=== PATIENT | female | born 1945 | race Caucasian/White ===

== ENCOUNTER 2020-05-20 15:17 | Observation (INO) | payer MEDICARE, OTHER ==
--- NOTE | 2020-05-20 15:16 | EDM.PDOC ---
ED HPI GENERAL MEDICAL PROBLEM - General Chief Complaint: Possible Sepsis Stated Complaint: Adrenal crisis Time Seen by Provider: 05/20/20 15:16 Source of Information: Reports: Patient, Old Records, Provider (Dr. Garcia), RN, RN Notes Reviewed History Limitations: Reports: No Limitations - History of Present Illness INITIAL COMMENTS - FREE TEXT/NARRATIVE: Pt sent from clinic to ER by POV by Dr. Garcia for evaluation and treatment of adrenal crisis and fever. Pt states she was admitted to [facility] this past weekend with adrenal crisis and fever, but no source of her fever was found, and she was discharged home Tuesday morning. Pt admits to mild cough. Denies chest pain, shortness of breath, N/V, abdominal pain, or rash. She does feel fatigued and similar to past adrenal crisis episodes. Onset: Today Duration: Constant, Getting Worse Location: Reports: Generalized Quality: Reports: Ache Severity: Moderate Improves with: Reports: None Worsens with: Reports: None Associated Symptoms: Reports: No Other Symptoms Headache Pain Score (Numeric/FACES): 4 - Related Data Allergies Allergy/AdvReac Type Severity Reaction Status Date / Time Penicillins Allergy Rash Verified 05/20/20 15:40 Home Meds: Home Meds Fludrocortisone [Florinef] 1 mg PO DAILY 05/20/20 [History] Hydrocortisone 5 mg PO ASDIRECTED PRN 05/20/20 [History] Hydrocortisone [Cortef] 2.5 mg PO DAILY 05/20/20 [History] Thyroid,Pork [[place] Thyroid] 60 mg PO DAILY 05/20/20 [History] Past Medical History Endocrine/Metabolic History: Reports: [place]'s Disease, Hypothyroidism Social & Family History - Family History Family Medical History: Noncontributory - Living Situation & Occupation Living situation: Reports: with Family Occupation: Retired ED ROS GENERAL - Review of Systems Review Of Systems: Comprehensive ROS is negative, except as noted in HPI. ED EXAM, GENERAL - Physical Exam Exam: See Below Exam Limited By: No Limitations General Appearance: Alert, WD/WN, No Apparent Distress Eye Exam: Bilateral Eye: EOMI, Normal Inspection, PERRL Nose: Normal Inspection, Normal Mucosa, No Blood Throat/Mouth: Normal Lips, Normal Teeth, Normal Gums, Normal Oropharynx, Normal Voice, No Airway Compromise Head: Atraumatic, Normocephalic Neck: Normal Inspection, Supple, Non-Tender, Full Range of Motion Respiratory/Chest: No Respiratory Distress, Lungs Clear, Normal Breath Sounds, No Accessory Muscle Use, Chest Non-Tender, Other (Dry cough). No: Crackles, Rales, Rhonchi, Wheezing, Stridor Cardiovascular: Regular Rate, Rhythm, No Edema GI/Abdominal: Normal Bowel Sounds, Soft, Non-Tender, No Organomegaly, No Distention, No Abnormal Bruit, No Mass Back Exam: Normal Inspection Extremities: Normal Inspection, Normal Range of Motion, Non-Tender, Normal Capillary Refill, No Pedal Edema Neurological: Alert, Oriented, CN II-XII Intact, Normal Cognition, No Motor/Sensory Deficits Psychiatric: Normal Mood Skin Exam: Warm, Dry, Intact, Normal Color, No Rash Course - Vital Signs Last Recorded V/S: Last Vital Signs Temp 99.9 F 05/20/20 17:06 Pulse 80 05/20/20 17:06 Resp 18 05/20/20 17:06 BP 143/66 H 05/20/20 17:06 Pulse Ox 97 05/20/20 17:06 - Orders/Labs/Meds Orders: Active Orders 24 hr Category Date Time Status Admission Diagnosis [ADT] Stat ADT 05/20/20 17:54 Ordered Admission Status [Patient Status] [ADT] Routine ADT 05/20/20 17:54 Active Blood Glucose Check, Bedside [] ONETIME Care 05/20/20 15:18 Active EKG 12 Lead [EKG Documentation Completion] [RC] ROUTINE Care 05/20/20 16:38 Active Peripheral IV Care [RC] . DIRECTED Care 05/20/20 15:18 Active CULTURE BLOOD [] Stat Lab 05/20/20 15:29 Received CULTURE BLOOD [] Stat Lab 05/20/20 15:29 Results Sodium Chloride 0.9% [Normal Saline] 1,000 ml Med 05/20/20 15:20 Active IV .BOLUS Sodium Chloride 0.9% [Saline Flush] Med 05/20/20 15:17 Active 10 ml FLUSH ASDIRECTED PRN Blood Culture x2 Reflex Set [OM.PC] Stat Oth 05/20/20 15:18 Ordered Peripheral IV Insertion Adult [OM.PC] Stat Oth 05/20/20 15:17 Ordered Medication Orders Sodium Chloride (Normal Saline) 1,000 mls @ 250 mls/hr IV .BOLUS ONE Stop: 05/20/20 19:19 Last Admin: 05/20/20 16:01 Dose: 250 mls/hr Documented by: ATIYA Sodium Chloride (Saline Flush) 10 ml FLUSH ASDIRECTED PRN PRN Reason: Keep Vein Open Last Admin: 05/20/20 16:03 Dose: 10 ml Documented by: ATIYA Labs: Laboratory Tests 05/20/20 05/20/20 05/20/20 Range/Units 15:29 15:29 15:29 WBC 5.7 (5.0-10.0) 10^3/uL RBC 4.97 (4.2-5.4) 10^6/uL Hgb 14.0 (12.0-16.0) g/dL Hct 43.1 (37.0-47.0) % MCV 86.7 (80-100) fL MCH 28.2 (27.0-34.0) pg MCHC 32.5 L (33.0-35.0) g/dL Plt Count 192 (150-450) 10^3/uL Neut % (Auto) 62.6 (42.2-75.2) % Lymph % (Auto) 24.9 (20.5-50.1) % [place] % (Auto) 12.1 H (2-8) % Eos % (Auto) 0.0 L (1.0-3.0) % Baso % (Auto) 0.4 (0.0-1.0) % Sodium 141 (136-145) mmol/L Potassium 3.5 (3.5-5.1) mmol/L Chloride 101 (98-107) mmol/L Carbon Dioxide 31 (21-32) mmol/L Anion Gap 12.5 (7-13) mEq/L BUN 13 (7-18) mg/dL Creatinine 0.97 (0.55-1.02) mg/dL Est Cr Clr Drug Dosing 46.91 mL/min Estimated GFR (MDRD) 56 BUN/Creatinine Ratio 13.4 (No establ ref range) Glucose 93 (74-99) mg/dL POC Glucose (83-110) mg/dl Lactic Acid 0.9 (0.4-2.0) mmol/L Calcium 9.1 (8.5-10.1) mg/dL Total Bilirubin 0.3 (0.2-1.0) mg/dL AST 29 (15-37) U/L ALT 32 (14-59) U/L Alkaline Phosphatase 99 (46-116) U/L Total Protein 6.5 (6.4-8.2) g/dL Albumin 3.3 L (3.4-5.0) g/dL Globulin 3.2 Albumin/Globulin Ratio 1.03 Urine Color (YELLOW) Urine Appearance (CLEAR) Urine pH (5.0-9.0) Ur Specific [place] (1.005-1.030) Urine Protein (NEGATIVE) Urine Glucose (UA) (NEGATIVE) Urine Ketones (NEGATIVE) Urine Occult Blood (NEGATIVE) Urine Nitrite (NEGATIVE) Urine Bilirubin (NEGATIVE) Urine Urobilinogen (0.2-1.0) mg/dL Ur Leukocyte Esterase (NEGATIVE) Urine RBC /HPF Urine WBC (0-5/HPF) /HPF Ur Epithelial Cells (NOT SEEN) /HPF Urine Bacteria (0-FEW/HPF) /HPF SARS CoV-2 RNA Rapid DAMON (NEGATIVE) 05/20/20 05/20/20 05/20/20 Range/Units 15:54 16:06 16:12 WBC (5.0-10.0) 10^3/uL RBC (4.2-5.4) 10^6/uL Hgb (12.0-16.0) g/dL Hct (37.0-47.0) % MCV (80-100) fL MCH (27.0-34.0) pg MCHC (33.0-35.0) g/dL Plt Count (150-450) 10^3/uL Neut % (Auto) (42.2-75.2) % Lymph % (Auto) (20.5-50.1) % [place] % (Auto) (2-8) % Eos % (Auto) (1.0-3.0) % Baso % (Auto) (0.0-1.0) % Sodium (136-145) mmol/L Potassium (3.5-5.1) mmol/L Chloride (98-107) mmol/L Carbon Dioxide (21-32) mmol/L Anion Gap (7-13) mEq/L BUN (7-18) mg/dL Creatinine (0.55-1.02) mg/dL Est Cr Clr Drug Dosing mL/min Estimated GFR (MDRD) BUN/Creatinine Ratio (No establ ref range) Glucose (74-99) mg/dL POC Glucose 86 (83-110) mg/dl Lactic Acid (0.4-2.0) mmol/L Calcium (8.5-10.1) mg/dL Total Bilirubin (0.2-1.0) mg/dL AST (15-37) U/L ALT (14-59) U/L Alkaline Phosphatase (46-116) U/L Total Protein (6.4-8.2) g/dL Albumin (3.4-5.0) g/dL Globulin Albumin/Globulin Ratio Urine Color Yellow (YELLOW) Urine Appearance Slightly cloudy (CLEAR) Urine pH 7.0 (5.0-9.0) Ur Specific [place] 1.020 (1.005-1.030) Urine Protein Negative (NEGATIVE) Urine Glucose (UA) Negative (NEGATIVE) Urine Ketones Negative (NEGATIVE) Urine Occult Blood Trace-intact H (NEGATIVE) Urine Nitrite Negative (NEGATIVE) Urine Bilirubin Negative (NEGATIVE) Urine Urobilinogen 0.2 (0.2-1.0) mg/dL Ur Leukocyte Esterase Negative (NEGATIVE) Urine RBC 0-5 /HPF Urine WBC 0-5 (0-5/HPF) /HPF Ur Epithelial Cells Rare (NOT SEEN) /HPF Urine Bacteria Rare (0-FEW/HPF) /HPF SARS CoV-2 RNA Rapid DAMON Positive H (NEGATIVE) Meds: Medications Generic Name Dose Route Start Last Admin Trade Name Freq PRN Reason Stop Dose Admin Sodium Chloride 1,000 mls @ 250 mls/hr 05/20/20 15:20 05/20/20 16:01 Normal Saline IV 05/20/20 19:19 250 mls/hr .BOLUS ONE Administration Sodium Chloride 10 ml 05/20/20 15:17 05/20/20 16:03 Saline Flush FLUSH 10 ml ASDIRECTED PRN Administration Keep Vein Open Discontinued Medications Generic Name Dose Route Start Last Admin Trade Name Freq PRN Reason Stop Dose Admin Dexamethasone 4 mg 05/20/20 15:16 05/20/20 16:03 Dexamethasone IVPUSH 05/20/20 15:17 4 mg ONETIME ONE Administration - Radiology Interpretation Free Text/Narrative:: CXR: no acute process per Rad. report. - Re-Assessments/Exams Free Text/Narrative Re-Assessment/Exam: 05/20/20 18:24 No beds available at [facility]. Dr. Roberts agrees to admit the pt here, but is having technical problems with the computer and plans to defer the admission to Dr. Steel at shift change. Departure - Departure Time of Disposition: 18:09 (admit to Dr. Roberts) Disposition: Admitted As Inpatient 65 Condition: Fair Clinical Impression: COVID-19, Acute adrenal crisis, Addisons disease - Discharge Information *PRESCRIPTION DRUG MONITORING PROGRAM REVIEWED*: Not Applicable *COPY OF PRESCRIPTION DRUG MONITORING REPORT IN PATIENT ALISA: Not Applicable Forms: ED Department Discharge Sepsis Event Note (ED) - Focused Exam Vital Signs: Vital Signs Temp Pulse Resp BP Pulse Ox 05/20/20 17:06 99.9 F 80 18 143/66 H 97 05/20/20 16:25 100 F 82 23 H 96/75 98 05/20/20 15:20 100.1 F 85 18 150/67 H 96 - My Orders Last 24 Hours: My Active Orders 05/20/20 15:17 Sodium Chloride 0.9% [Saline Flush] 10 ml FLUSH ASDIRECTED PRN Peripheral IV Insertion Adult [OM.PC] Stat 05/20/20 15:18 Blood Glucose Check, Bedside [RC] ONETIME Peripheral IV Care [RC] . DIRECTED Blood Culture x2 Reflex Set [OM.PC] Stat 05/20/20 15:20 Sodium Chloride 0.9% [Normal Saline] 1,000 ml IV .BOLUS 05/20/20 15:29 CULTURE BLOOD [BC] Stat CULTURE BLOOD [BC] Stat 05/20/20 16:38 EKG 12 Lead [EKG Documentation Completion] [RC] ROUTINE 05/20/20 17:54 Admission Diagnosis [ADT] Stat Admission Status [Patient Status] [ADT] Routine - Assessment/Plan Last 24 Hours: My Active Orders 05/20/20 15:17 Sodium Chloride 0.9% [Saline Flush] 10 ml FLUSH ASDIRECTED PRN Peripheral IV Insertion Adult [OM.PC] Stat 05/20/20 15:18 Blood Glucose Check, Bedside [RC] ONETIME Peripheral IV Care [RC] . DIRECTED Blood Culture x2 Reflex Set [OM.PC] Stat 05/20/20 15:20 Sodium Chloride 0.9% [Normal Saline] 1,000 ml IV .BOLUS 05/20/20 15:29 CULTURE BLOOD [BC] Stat CULTURE BLOOD [BC] Stat 05/20/20 16:38 EKG 12 Lead [EKG Documentation Completion] [RC] ROUTINE 05/20/20 17:54 Admission Diagnosis [ADT] Stat Admission Status [Patient Status] [ADT] Routine
[~2020-05-20 15:17] MED LIST: Dexamethasone 4 MG/ML SDV IVPUSH ONE; Sodium Chloride 0.9% 10 ML Syringe FLUSH PRN
[2020-05-20] MEDS ORDERED: Sodium Chloride 0.9% 1,000 ML IV ONE (15:20)
[2020-05-20 16:12] LABS: ANION GAP 12.5 mEq/L (7-13)
--- NOTE | 2020-05-20 17:04 | CR ---
EXAMINATION: Chest 1V Frontal SEX: Female AGE: 74 years CLINICAL HISTORY: 74-year-old female with FEVER (COVID POSITIVE in ER). No comparisons. Interpretation: Negative exam. 1. Upright AP portable chest with external rn cardiac rehab leads and Gown snap artifacts. 2. Normal cardiac silhouette (size and configuration). No pulmonary vascular congestion, cephalization of flow, alveolar edema or dependent pleural effusion. 3. No peripheral "groundglass" densities. No focal lobar infiltrate, atelectasis or collapse. 4. No lung mass or hilar lymphadenopathy. 5. No pneumothorax or pneumomediastinum. Midline tracheal bronchial airway unremarkable.
[2020-05-20] MEDS ORDERED: Ondansetron 4 MG/2 ML SDV IVPUSH PRN (21:34)
[2020-05-20] MEDS ORDERED: Acetaminophen 325 MG Tab PO PRN (21:34)
[2020-05-20] MEDS ORDERED: Ondansetron 4 MG Tab.DIS PO PRN (21:34)
[2020-05-20] MEDS ORDERED: HYDROCORTISONE 5 MG PO PRN (22:25)
[2020-05-21 07:18] LABS: ANION GAP 10.6 mEq/L (7-13); CHLORIDE,CL 104 mmol/L (98-107); SODIUM,NA 141 mmol/L (136-145)
[2020-05-21] MEDS ORDERED: THYROID PORK 60 MG PO SCH (09:00)
[2020-05-21] MEDS ORDERED: HYDROCORTISONE 2.5 MG PO SCH (09:00)
[2020-05-21] MEDS ORDERED: Fludrocortisone 0.1 MG Tab PO SCH ×2 (09:00)
[2020-05-21] MEDS ORDERED: Enoxaparin 40 MG/0.4 ML Syringe SUBCUT SCH (09:00)
--- NOTE | 2020-05-21 12:08 | PCM.HP ---
H&P History of Present Illness - General Date of Service: 05/20/20 Admit Problem/Dx: Admission Diagnosis/Problem Admission Diagnosis/Problem SIRS without acute organ dysfunction due to infectious process Source of Information: Patient, Old Records, Provider History Limitations: Reports: No Limitations - History of Present Illness Initial Comments - Free Text/Narative: Patient is a 74-year-old female with a history significant for adrenal insufficiency, dyslipidemia, atrial fibrillation, and osteopenia who presented to the ED with complaints of fevers and concern for possible adrenal crisis. Patient reports that she checked her temperature at home and was high so she called her PCP who told her to come to the ED. In the ED, patient's temperature was 100.1 with blood pressure of 150/65 respiratory rate of 18, heart rate of 85, and saturating 96% on room air. Patient denies any cough, shortness of breath, nausea, vomiting, diarrhea, constipation, dysuria, hematuria, edema, or any new symptoms. Reports that she was admitted to the hospital in [place] for adrenal insufficiency. COVID-19 screen was negative. She was discharged home yesterday. In the ED today, COVID-19 screen was positive. Headache Pain Score (Numeric/FACES): 4 - Related Data Allergies/Adverse Reactions: Allergies Allergy/AdvReac Type Severity Reaction Status Date / Time Penicillins Allergy Rash Verified 05/20/20 15:40 Home Medications: Home Meds Fludrocortisone [Florinef] 0.1 mg PO DAILY 05/20/20 [History] Hydrocortisone 5 mg PO ASDIRECTED PRN 05/20/20 [History] Hydrocortisone [Cortef] 2.5 mg PO DAILY 05/20/20 [History] Thyroid,Pork [[place] Thyroid] 60 mg PO DAILY 05/20/20 [History] Past Medical History [employer] History: Reports: Musculoskeletal History: Reports: Osteoporosis Endocrine/Metabolic History: Reports: [place]'s Disease, Hypothyroidism - Past Surgical History HEENT Surgical History: Reports: Cataract Surgery, Detached Retina, LASIK GI Surgical History: Reports: Appendectomy, Colonoscopy Social & Family History - Family History Family Medical History: Noncontributory - Tobacco Use Smoking Status *Q: Never Smoker Second Hand Smoke Exposure: No - Caffeine Use Caffeine Use: Reports: Coffee - Recreational Drug Use Recreational Drug Use: No - Living Situation & Occupation Living situation: Reports: with Family Occupation: Retired H&P Review of Systems - Review of Systems: Review Of Systems: Comprehensive ROS is negative, except as noted in HPI. Exam - Exam Exam: See Below - Vital Signs Vital Signs: Last Vital Signs Temp 98.3 F 05/21/20 08:28 Pulse 68 05/21/20 08:28 Resp 20 05/21/20 08:28 BP 137/66 05/21/20 08:28 Pulse Ox 96 05/21/20 08:28 Weight: 161 lb - Exam General: Alert, Oriented, Cooperative HEENT: EOMI, Hearing Intact, Mucosa Moist & Arnold Neck: Supple, Trachea Midline Lungs: Clear to Auscultation, Normal Respiratory Effort Cardiovascular: Regular Rate, Regular Rhythm, Normal S1 GI/Abdominal Exam: Normal Bowel Sounds, Soft, Non-Tender, No Distention Extremities: Normal Inspection, Non-Tender, No Pedal Edema Skin: Warm, Dry, Intact Psychiatric: Alert, Normal Affect, Normal Mood - Patient Data Lab Results Last 24 hrs: Laboratory Results - last 24 hr 05/20/20 05/20/20 05/20/20 Range/Units 15:29 15:29 15:29 WBC 5.7 (5.0-10.0) 10^3/uL RBC 4.97 (4.2-5.4) 10^6/uL Hgb 14.0 (12.0-16.0) g/dL Hct 43.1 (37.0-47.0) % MCV 86.7 (80-100) fL MCH 28.2 (27.0-34.0) pg MCHC 32.5 L (33.0-35.0) g/dL Plt Count 192 (150-450) 10^3/uL Neut % (Auto) 62.6 (42.2-75.2) % Lymph % (Auto) 24.9 (20.5-50.1) % Liberty % (Auto) 12.1 H (2-8) % Eos % (Auto) 0.0 L (1.0-3.0) % Baso % (Auto) 0.4 (0.0-1.0) % D-Dimer, Quantitative (0-400) ng/mL Sodium 141 (136-145) mmol/L Potassium 3.5 (3.5-5.1) mmol/L Chloride 101 (98-107) mmol/L Carbon Dioxide 31 (21-32) mmol/L Anion Gap 12.5 (7-13) mEq/L BUN 13 (7-18) mg/dL Creatinine 0.97 (0.55-1.02) mg/dL Est Cr Clr Drug Dosing 46.91 mL/min Estimated GFR (MDRD) 56 BUN/Creatinine Ratio 13.4 (No establ ref range) Glucose 93 (74-99) mg/dL POC Glucose (83-110) mg/dl Lactic Acid 0.9 (0.4-2.0) mmol/L Calcium 9.1 (8.5-10.1) mg/dL Phosphorus (2.6-4.7) mg/dL Magnesium (1.8-2.4) mg/dL Ferritin (8-252) mg/mL Total Bilirubin 0.3 (0.2-1.0) mg/dL AST 29 (15-37) U/L ALT 32 (14-59) U/L Alkaline Phosphatase 99 (46-116) U/L Lactate Dehydrogenase (81-234) U/L Troponin I (0.000-0.056) ng/mL C-Reactive Protein (0.0-0.9) mg/dL Total Protein 6.5 (6.4-8.2) g/dL Albumin 3.3 L (3.4-5.0) g/dL Globulin 3.2 Albumin/Globulin Ratio 1.03 Urine Color (YELLOW) Urine Appearance (CLEAR) Urine pH (5.0-9.0) Ur Specific [place] (1.005-1.030) Urine Protein (NEGATIVE) Urine Glucose (UA) (NEGATIVE) Urine Ketones (NEGATIVE) Urine Occult Blood (NEGATIVE) Urine Nitrite (NEGATIVE) Urine Bilirubin (NEGATIVE) Urine Urobilinogen (0.2-1.0) mg/dL Ur Leukocyte Esterase (NEGATIVE) Urine RBC /HPF Urine WBC (0-5/HPF) /HPF Ur Epithelial Cells (NOT SEEN) /HPF Urine Bacteria (0-FEW/HPF) /HPF SARS CoV-2 RNA Rapid DAMON (NEGATIVE) 05/20/20 05/20/20 05/20/20 Range/Units 15:29 15:29 15:29 WBC (5.0-10.0) 10^3/uL RBC (4.2-5.4) 10^6/uL Hgb (12.0-16.0) g/dL Hct (37.0-47.0) % MCV (80-100) fL MCH (27.0-34.0) pg MCHC (33.0-35.0) g/dL Plt Count (150-450) 10^3/uL Neut % (Auto) (42.2-75.2) % Lymph % (Auto) (20.5-50.1) % Liberty % (Auto) (2-8) % Eos % (Auto) (1.0-3.0) % Baso % (Auto) (0.0-1.0) % D-Dimer, Quantitative < 100 (0-400) ng/mL Sodium (136-145) mmol/L Potassium (3.5-5.1) mmol/L Chloride (98-107) mmol/L Carbon Dioxide (21-32) mmol/L Anion Gap (7-13) mEq/L BUN (7-18) mg/dL Creatinine (0.55-1.02) mg/dL Est Cr Clr Drug Dosing mL/min Estimated GFR (MDRD) BUN/Creatinine Ratio (No establ ref range) Glucose (74-99) mg/dL POC Glucose (83-110) mg/dl Lactic Acid (0.4-2.0) mmol/L Calcium (8.5-10.1) mg/dL Phosphorus 3.0 (2.6-4.7) mg/dL Magnesium 1.9 (1.8-2.4) mg/dL Ferritin 195 (8-252) mg/mL Total Bilirubin (0.2-1.0) mg/dL AST (15-37) U/L ALT (14-59) U/L Alkaline Phosphatase (46-116) U/L Lactate Dehydrogenase 210 (81-234) U/L Troponin I < 0.017 (0.000-0.056) ng/mL C-Reactive Protein 2.1 H (0.0-0.9) mg/dL Total Protein (6.4-8.2) g/dL Albumin (3.4-5.0) g/dL Globulin Albumin/Globulin Ratio Urine Color (YELLOW) Urine Appearance (CLEAR) Urine pH (5.0-9.0) Ur Specific [place] (1.005-1.030) Urine Protein (NEGATIVE) Urine Glucose (UA) (NEGATIVE) Urine Ketones (NEGATIVE) Urine Occult Blood (NEGATIVE) Urine Nitrite (NEGATIVE) Urine Bilirubin (NEGATIVE) Urine Urobilinogen (0.2-1.0) mg/dL Ur Leukocyte Esterase (NEGATIVE) Urine RBC /HPF Urine WBC (0-5/HPF) /HPF Ur Epithelial Cells (NOT SEEN) /HPF Urine Bacteria (0-FEW/HPF) /HPF SARS CoV-2 RNA Rapid DAMON (NEGATIVE) 05/20/20 05/20/20 05/20/20 Range/Units 15:54 16:06 16:12 WBC (5.0-10.0) 10^3/uL RBC (4.2-5.4) 10^6/uL Hgb (12.0-16.0) g/dL Hct (37.0-47.0) % MCV (80-100) fL MCH (27.0-34.0) pg MCHC (33.0-35.0) g/dL Plt Count (150-450) 10^3/uL Neut % (Auto) (42.2-75.2) % Lymph % (Auto) (20.5-50.1) % Liberty % (Auto) (2-8) % Eos % (Auto) (1.0-3.0) % Baso % (Auto) (0.0-1.0) % D-Dimer, Quantitative (0-400) ng/mL Sodium (136-145) mmol/L Potassium (3.5-5.1) mmol/L Chloride (98-107) mmol/L Carbon Dioxide (21-32) mmol/L Anion Gap (7-13) mEq/L BUN (7-18) mg/dL Creatinine (0.55-1.02) mg/dL Est Cr Clr Drug Dosing mL/min Estimated GFR (MDRD) BUN/Creatinine Ratio (No establ ref range) Glucose (74-99) mg/dL POC Glucose 86 (83-110) mg/dl Lactic Acid (0.4-2.0) mmol/L Calcium (8.5-10.1) mg/dL Phosphorus (2.6-4.7) mg/dL Magnesium (1.8-2.4) mg/dL Ferritin (8-252) mg/mL Total Bilirubin (0.2-1.0) mg/dL AST (15-37) U/L ALT (14-59) U/L Alkaline Phosphatase (46-116) U/L Lactate Dehydrogenase (81-234) U/L Troponin I (0.000-0.056) ng/mL C-Reactive Protein (0.0-0.9) mg/dL Total Protein (6.4-8.2) g/dL Albumin (3.4-5.0) g/dL Globulin Albumin/Globulin Ratio Urine Color Yellow (YELLOW) Urine Appearance Slightly cloudy (CLEAR) Urine pH 7.0 (5.0-9.0) Ur Specific [place] 1.020 (1.005-1.030) Urine Protein Negative (NEGATIVE) Urine Glucose (UA) Negative (NEGATIVE) Urine Ketones Negative (NEGATIVE) Urine Occult Blood Trace-intact H (NEGATIVE) Urine Nitrite Negative (NEGATIVE) Urine Bilirubin Negative (NEGATIVE) Urine Urobilinogen 0.2 (0.2-1.0) mg/dL Ur Leukocyte Esterase Negative (NEGATIVE) Urine RBC 0-5 /HPF Urine WBC 0-5 (0-5/HPF) /HPF Ur Epithelial Cells Rare (NOT SEEN) /HPF Urine Bacteria Rare (0-FEW/HPF) /HPF SARS CoV-2 RNA Rapid DAMON Positive H (NEGATIVE) 05/21/20 05/21/20 05/21/20 Range/Units 06:40 06:40 08:20 WBC 3.2 L (5.0-10.0) 10^3/uL RBC 4.63 (4.2-5.4) 10^6/uL Hgb 13.1 (12.0-16.0) g/dL Hct 39.7 (37.0-47.0) % MCV 85.7 (80-100) fL MCH 28.3 (27.0-34.0) pg MCHC 33.0 (33.0-35.0) g/dL Plt Count 178 (150-450) 10^3/uL Neut % (Auto) (42.2-75.2) % Lymph % (Auto) (20.5-50.1) % Liberty % (Auto) (2-8) % Eos % (Auto) (1.0-3.0) % Baso % (Auto) (0.0-1.0) % D-Dimer, Quantitative (0-400) ng/mL Sodium 141 (136-145) mmol/L Potassium 3.6 (3.5-5.1) mmol/L Chloride 104 (98-107) mmol/L Carbon Dioxide 30 (21-32) mmol/L Anion Gap 10.6 (7-13) mEq/L BUN 13 (7-18) mg/dL Creatinine 0.77 (0.55-1.02) mg/dL Est Cr Clr Drug Dosing 59.10 mL/min Estimated GFR (MDRD) > 60 BUN/Creatinine Ratio 16.9 (No establ ref range) Glucose 101 H (74-99) mg/dL POC Glucose (83-110) mg/dl Lactic Acid 1.2 (0.4-2.0) mmol/L Calcium 9.3 (8.5-10.1) mg/dL Phosphorus (2.6-4.7) mg/dL Magnesium (1.8-2.4) mg/dL Ferritin (8-252) mg/mL Total Bilirubin 0.3 (0.2-1.0) mg/dL AST 21 (15-37) U/L ALT 27 (14-59) U/L Alkaline Phosphatase 83 (46-116) U/L Lactate Dehydrogenase (81-234) U/L Troponin I (0.000-0.056) ng/mL C-Reactive Protein (0.0-0.9) mg/dL Total Protein 5.9 L (6.4-8.2) g/dL Albumin 2.9 L (3.4-5.0) g/dL Globulin 3.0 Albumin/Globulin Ratio 0.97 Urine Color (YELLOW) Urine Appearance (CLEAR) Urine pH (5.0-9.0) Ur Specific [place] (1.005-1.030) Urine Protein (NEGATIVE) Urine Glucose (UA) (NEGATIVE) Urine Ketones (NEGATIVE) Urine Occult Blood (NEGATIVE) Urine Nitrite (NEGATIVE) Urine Bilirubin (NEGATIVE) Urine Urobilinogen (0.2-1.0) mg/dL Ur Leukocyte Esterase (NEGATIVE) Urine RBC /HPF Urine WBC (0-5/HPF) /HPF Ur Epithelial Cells (NOT SEEN) /HPF Urine Bacteria (0-FEW/HPF) /HPF SARS CoV-2 RNA Rapid DAMON (NEGATIVE) Result Diagrams: 05/21/20 06:40 05/21/20 06:40 Billy Results Last 24 hrs: Microbiology 05/20/20 15:29 Anaerobic Blood Culture - Final Blood - Venous - Lab Draw - Problem List (1) Hypothyroidism SNOMED Code(s): 92700508 ICD Code: E03.9 - HYPOTHYROIDISM, UNSPECIFIED Status: Acute Current Visit: Yes (2) Dyslipidemia SNOMED Code(s): 625086870 ICD Code: E78.5 - HYPERLIPIDEMIA, UNSPECIFIED Status: Acute Current Visit: Yes (3) Addisons disease SNOMED Code(s): 864412147 ICD Code: E27.1 - PRIMARY ADRENOCORTICAL INSUFFICIENCY Status: Acute Current Visit: No (4) COVID-19 SNOMED Code(s): 506596846 ICD Code: U07.1 - COVID-19 Status: Acute Current Visit: No Problem List Initiated/Reviewed/Updated: Yes Orders Last 24hrs: Active Orders 24 hr Category Date Time Status Admission Diagnosis [ADT] Stat ADT 05/20/20 17:54 Ordered Admission Status [Patient Status] [ADT] Routine ADT 05/20/20 17:54 Active Antiembolic Devices [RC] 08,20 Care 05/21/20 08:23 Active Height and Weight [RC] 0600 Care 05/20/20 21:34 Active Intake and Output [RC] QSHIFT Care 05/20/20 21:36 Active Oxygen Therapy [RC] PRN Care 05/20/20 21:34 Active Up With Assistance [RC] ASDIRECTED Care 05/20/20 21:34 Active VTE/DVT Education [RC] PER UNIT ROUTINE Care 05/20/20 21:34 Active Vital Signs [RC] 00,04,08,12,16,20 Care 05/20/20 21:34 Active Regular Diet [DIET] Diet 05/20/20 Dinner Active CBC W/O DIFF,HEMOGRAM [HEME] DAILY Lab 05/22/20 06:00 Ordered CBC W/O DIFF,HEMOGRAM [HEME] DAILY Lab 05/23/20 06:00 Ordered CBC W/O DIFF,HEMOGRAM [HEME] DAILY Lab 05/24/20 06:00 Ordered CBC W/O DIFF,HEMOGRAM [HEME] DAILY Lab 05/25/20 06:00 Ordered CBC W/O DIFF,HEMOGRAM [HEME] DAILY Lab 05/26/20 06:00 Ordered CMP [COMPREHENSIVE METABOLIC PN,CMP] [CHEM] DAILY Lab 05/22/20 06:00 Ordered CMP [COMPREHENSIVE METABOLIC PN,CMP] [CHEM] DAILY Lab 05/23/20 06:00 Ordered CMP [COMPREHENSIVE METABOLIC PN,CMP] [CHEM] DAILY Lab 05/24/20 06:00 Ordered CMP [COMPREHENSIVE METABOLIC PN,CMP] [CHEM] DAILY Lab 05/25/20 06:00 Ordered CMP [COMPREHENSIVE METABOLIC PN,CMP] [CHEM] DAILY Lab 05/26/20 06:00 Ordered CULTURE BLOOD [BC] Stat Lab 05/20/20 15:29 Received CULTURE BLOOD [BC] Stat Lab 05/20/20 15:29 Results LACTIC ACID [CHEM] DAILY Lab 05/22/20 06:00 Ordered LACTIC ACID [CHEM] DAILY Lab 05/23/20 06:00 Ordered LACTIC ACID [CHEM] DAILY Lab 05/24/20 06:00 Ordered LACTIC ACID [CHEM] DAILY Lab 05/25/20 06:00 Ordered LACTIC ACID [CHEM] DAILY Lab 05/26/20 06:00 Ordered Acetaminophen [TylenoL] Med 05/20/20 21:34 Active 650 mg PO Q4H PRN Docusate Sodium/Sennosides [Senna Plus] Med 05/20/20 21:34 Active 1 tab PO BEDTIME PRN Enoxaparin [Lovenox] Med 05/21/20 09:00 Active 40 mg SUBCUT DAILY Fludrocortisone [Florinef] Med 05/21/20 09:00 Active 0.1 mg PO DAILY Hydrocortisone [Cortef] Med 05/21/20 09:00 Pending 2.5 mg PO DAILY Hydrocortisone [Hydrocortisone] Med 05/20/20 22:25 Pending 5 mg PO ASDIRECTED PRN Ondansetron [Zofran ODT] Med 05/20/20 21:34 Active 4 mg PO Q6H PRN Ondansetron [Zofran] Med 05/20/20 21:34 Active 4 mg IVPUSH Q6H PRN Sodium Chloride 0.9% [Saline Flush] Med 05/20/20 15:17 Active 10 ml FLUSH ASDIRECTED PRN Thyroid,Pork Med 05/21/20 09:00 Pending 60 mg PO DAILY Blood Culture x2 Reflex Set [OM.PC] Stat Oth 05/20/20 15:18 Ordered Peripheral IV Insertion Adult [OM.PC] Stat Oth 05/20/20 15:17 Ordered DIANE Hose [Antiembolic Hose] [OM.PC] Routine Oth 05/21/20 08:23 Ordered Resuscitation Status Routine Resus Stat 05/20/20 21:34 Ordered Medication Orders Acetaminophen (Tylenol) 650 mg PO Q4H PRN PRN Reason: Pain (Mild 1-3)/fever Enoxaparin Sodium (Lovenox) 40 mg SUBCUT DAILY [facility] Last Admin: 05/21/20 08:30 Dose: 40 mg Documented by: MAXIMILIANO Fludrocortisone Acetate (Florinef) 0.1 mg PO DAILY [facility] Last Admin: 05/21/20 08:30 Dose: 0.1 mg Documented by: MAXIMILIANO Non-Formulary Medication (Thyroid,Pork) 60 mg PO DAILY [facility] Non-Formulary Medication (Hydrocortisone [Hydrocortisone]) 5 mg PO ASDIRECTED PRN PRN Reason: Congestion Non-Formulary Medication (Hydrocortisone [Cortef]) 2.5 mg PO DAILY [facility] Ondansetron HCl (Zofran Odt) 4 mg PO Q6H PRN PRN Reason: nausea, able to take PO Ondansetron HCl (Zofran) 4 mg IVPUSH Q6H PRN PRN Reason: Nausea/Vomiting Senna/Docusate Sodium (Senna Plus) 1 tab PO BEDTIME PRN PRN Reason: Constipation Sodium Chloride (Saline Flush) 10 ml FLUSH ASDIRECTED PRN PRN Reason: Keep Vein Open Last Admin: 05/20/20 16:03 Dose: 10 ml Documented by: ATIYA Assessment/Plan Comment:: COVID-19 infection with SIRS: Patient with tachycardia, and fever. No chest pain, shortness of, nausea, vomiting, diarrhea, constipation, dysuria, hematuria, or any new symptoms. 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
--- NOTE | 2020-05-21 12:23 | PCM.DCSUM1 ---
Discharge Summary - Hospital Course Free Text/Narrative:: Patient is a 74-year-old female with a history significant for adrenal insufficiency, dyslipidemia, atrial fibrillation, and osteopenia who presented to the ED with complaints of fevers and concern for possible adrenal crisis. Patient reports that she checked her temperature at home and was high so she called her PCP who was admitted for COVID-19 infection with SIRS. Patient remained hemodynamically stable overnight. There was no recurrence of fevers. Discussed with patient, patient's daughter, and patient's primary care doctor Dr. Garcia about the plan of care. Dr. Garcia recommends patient following up with her still operator gin due to concern about patient going back into adrenal crisis. Patient is being discharged home to self quarantine and to follow-up with PCP and her still operator gin. Diagnosis: Stroke: No - Discharge Data Discharge Date: 05/21/20 Discharge Disposition: Home, Self-Care 01 Condition: Good - Referral to Home Health Primary Care Physician: Lopez Rosales MD - Discharge Diagnosis/Problem(s) (1) Hypothyroidism SNOMED Code(s): 69551476 ICD Code: E03.9 - HYPOTHYROIDISM, UNSPECIFIED Status: Acute Current Visit: Yes (2) Dyslipidemia SNOMED Code(s): 376508664 ICD Code: E78.5 - HYPERLIPIDEMIA, UNSPECIFIED Status: Acute Current Visit: Yes (3) Addisons disease SNOMED Code(s): 988549785 ICD Code: E27.1 - PRIMARY ADRENOCORTICAL INSUFFICIENCY Status: Acute Current Visit: No (4) COVID-19 SNOMED Code(s): 944940692 ICD Code: U07.1 - COVID-19 Status: Acute Current Visit: No - Discharge Plan *PRESCRIPTION DRUG MONITORING PROGRAM REVIEWED*: Not Applicable *COPY OF PRESCRIPTION DRUG MONITORING REPORT IN PATIENT ALISA: Not Applicable Home Medications: Home Meds Fludrocortisone [Florinef] 0.1 mg PO DAILY 05/20/20 [History] Hydrocortisone 5 mg PO ASDIRECTED PRN 05/20/20 [History] Hydrocortisone [Cortef] 2.5 mg PO DAILY 05/20/20 [History] Thyroid,Pork [Adams Thyroid] 60 mg PO DAILY 05/20/20 [History] Forms: ED Department Discharge Referrals: PCP,None [Ordering Only Provider] - - Discharge Summary/Plan Comment DC Time >30 min.: Yes - General Info Date of Service: 05/21/20 Admission Dx/Problem (Free Text: Admission Diagnosis/Problem Admission Diagnosis/Problem SIRS without acute organ dysfunction due to infectious process Subjective Update: No acute events overnight. Patient denies any chest pain, shortness breath, fevers, chills, nausea, vomiting, diarrhea, constipation, dysuria, hematuria, pain, headache, vision changes, or any acute concerns. Worried about possibility of getting an adrenal crisis due to COVID-19 infection and not having family available to help care for her. - Patient Data Vitals - Most Recent: Last Vital Signs Temp 98.3 F 05/21/20 08:28 Pulse 68 05/21/20 08:28 Resp 20 05/21/20 08:28 BP 137/66 05/21/20 08:28 Pulse Ox 96 05/21/20 08:28 Weight - Most Recent: 161 lb I&O - Last 24 hours: Intake & Output 05/20/20 05/21/20 05/21/20 22:59 06:59 14:59 Intake Total 417 100 Output Total 200 200 Balance 217 -100 Lab Results - Last 24 hrs: Laboratory Results - last 24 hr 05/20/20 05/20/20 05/20/20 Range/Units 15:29 15:29 15:29 WBC 5.7 (5.0-10.0) 10^3/uL RBC 4.97 (4.2-5.4) 10^6/uL Hgb 14.0 (12.0-16.0) g/dL Hct 43.1 (37.0-47.0) % MCV 86.7 (80-100) fL MCH 28.2 (27.0-34.0) pg MCHC 32.5 L (33.0-35.0) g/dL Plt Count 192 (150-450) 10^3/uL Neut % (Auto) 62.6 (42.2-75.2) % Lymph % (Auto) 24.9 (20.5-50.1) % Eagle % (Auto) 12.1 H (2-8) % Eos % (Auto) 0.0 L (1.0-3.0) % Baso % (Auto) 0.4 (0.0-1.0) % D-Dimer, Quantitative (0-400) ng/mL Sodium 141 (136-145) mmol/L Potassium 3.5 (3.5-5.1) mmol/L Chloride 101 (98-107) mmol/L Carbon Dioxide 31 (21-32) mmol/L Anion Gap 12.5 (7-13) mEq/L BUN 13 (7-18) mg/dL Creatinine 0.97 (0.55-1.02) mg/dL Est Cr Clr Drug Dosing 46.91 mL/min Estimated GFR (MDRD) 56 BUN/Creatinine Ratio 13.4 (No establ ref range) Glucose 93 (74-99) mg/dL POC Glucose (83-110) mg/dl Lactic Acid 0.9 (0.4-2.0) mmol/L Calcium 9.1 (8.5-10.1) mg/dL Phosphorus (2.6-4.7) mg/dL Magnesium (1.8-2.4) mg/dL Ferritin (8-252) mg/mL Total Bilirubin 0.3 (0.2-1.0) mg/dL AST 29 (15-37) U/L ALT 32 (14-59) U/L Alkaline Phosphatase 99 (46-116) U/L Lactate Dehydrogenase (81-234) U/L Troponin I (0.000-0.056) ng/mL C-Reactive Protein (0.0-0.9) mg/dL Total Protein 6.5 (6.4-8.2) g/dL Albumin 3.3 L (3.4-5.0) g/dL Globulin 3.2 Albumin/Globulin Ratio 1.03 Urine Color (YELLOW) Urine Appearance (CLEAR) Urine pH (5.0-9.0) Ur Specific [place] (1.005-1.030) Urine Protein (NEGATIVE) Urine Glucose (UA) (NEGATIVE) Urine Ketones (NEGATIVE) Urine Occult Blood (NEGATIVE) Urine Nitrite (NEGATIVE) Urine Bilirubin (NEGATIVE) Urine Urobilinogen (0.2-1.0) mg/dL Ur Leukocyte Esterase (NEGATIVE) Urine RBC /HPF Urine WBC (0-5/HPF) /HPF Ur Epithelial Cells (NOT SEEN) /HPF Urine Bacteria (0-FEW/HPF) /HPF SARS CoV-2 RNA Rapid DAMON (NEGATIVE) 10/06/20 10/06/20 10/06/20 Range/Units 15:29 15:29 15:29 WBC (5.0-10.0) 10^3/uL RBC (4.2-5.4) 10^6/uL Hgb (12.0-16.0) g/dL Hct (37.0-47.0) % MCV (80-100) fL MCH (27.0-34.0) pg MCHC (33.0-35.0) g/dL Plt Count (150-450) 10^3/uL Neut % (Auto) (42.2-75.2) % Lymph % (Auto) (20.5-50.1) % Eagle % (Auto) (2-8) % Eos % (Auto) (1.0-3.0) % Baso % (Auto) (0.0-1.0) % D-Dimer, Quantitative < 100 (0-400) ng/mL Sodium (136-145) mmol/L Potassium (3.5-5.1) mmol/L Chloride (98-107) mmol/L Carbon Dioxide (21-32) mmol/L Anion Gap (7-13) mEq/L BUN (7-18) mg/dL Creatinine (0.55-1.02) mg/dL Est Cr Clr Drug Dosing mL/min Estimated GFR (MDRD) BUN/Creatinine Ratio (No establ ref range) Glucose (74-99) mg/dL POC Glucose (83-110) mg/dl Lactic Acid (0.4-2.0) mmol/L Calcium (8.5-10.1) mg/dL Phosphorus 3.0 (2.6-4.7) mg/dL Magnesium 1.9 (1.8-2.4) mg/dL Ferritin 195 (8-252) mg/mL Total Bilirubin (0.2-1.0) mg/dL AST (15-37) U/L ALT (14-59) U/L Alkaline Phosphatase (46-116) U/L Lactate Dehydrogenase 210 (81-234) U/L Troponin I < 0.017 (0.000-0.056) ng/mL C-Reactive Protein 2.1 H (0.0-0.9) mg/dL Total Protein (6.4-8.2) g/dL Albumin (3.4-5.0) g/dL Globulin Albumin/Globulin Ratio Urine Color (YELLOW) Urine Appearance (CLEAR) Urine pH (5.0-9.0) Ur Specific [place] (1.005-1.030) Urine Protein (NEGATIVE) Urine Glucose (UA) (NEGATIVE) Urine Ketones (NEGATIVE) Urine Occult Blood (NEGATIVE) Urine Nitrite (NEGATIVE) Urine Bilirubin (NEGATIVE) Urine Urobilinogen (0.2-1.0) mg/dL Ur Leukocyte Esterase (NEGATIVE) Urine RBC /HPF Urine WBC (0-5/HPF) /HPF Ur Epithelial Cells (NOT SEEN) /HPF Urine Bacteria (0-FEW/HPF) /HPF SARS CoV-2 RNA Rapid DAMON (NEGATIVE) 05/20/20 05/20/20 05/20/20 Range/Units 15:54 16:06 16:12 WBC (5.0-10.0) 10^3/uL RBC (4.2-5.4) 10^6/uL Hgb (12.0-16.0) g/dL Hct (37.0-47.0) % MCV (80-100) fL MCH (27.0-34.0) pg MCHC (33.0-35.0) g/dL Plt Count (150-450) 10^3/uL Neut % (Auto) (42.2-75.2) % Lymph % (Auto) (20.5-50.1) % Eagle % (Auto) (2-8) % Eos % (Auto) (1.0-3.0) % Baso % (Auto) (0.0-1.0) % D-Dimer, Quantitative (0-400) ng/mL Sodium (136-145) mmol/L Potassium (3.5-5.1) mmol/L Chloride (98-107) mmol/L Carbon Dioxide (21-32) mmol/L Anion Gap (7-13) mEq/L BUN (7-18) mg/dL Creatinine (0.55-1.02) mg/dL Est Cr Clr Drug Dosing mL/min Estimated GFR (MDRD) BUN/Creatinine Ratio (No establ ref range) Glucose (74-99) mg/dL POC Glucose 86 (83-110) mg/dl Lactic Acid (0.4-2.0) mmol/L Calcium (8.5-10.1) mg/dL Phosphorus (2.6-4.7) mg/dL Magnesium (1.8-2.4) mg/dL Ferritin (8-252) mg/mL Total Bilirubin (0.2-1.0) mg/dL AST (15-37) U/L ALT (14-59) U/L Alkaline Phosphatase (46-116) U/L Lactate Dehydrogenase (81-234) U/L Troponin I (0.000-0.056) ng/mL C-Reactive Protein (0.0-0.9) mg/dL Total Protein (6.4-8.2) g/dL Albumin (3.4-5.0) g/dL Globulin Albumin/Globulin Ratio Urine Color Yellow (YELLOW) Urine Appearance Slightly cloudy (CLEAR) Urine pH 7.0 (5.0-9.0) Ur Specific [place] 1.020 (1.005-1.030) Urine Protein Negative (NEGATIVE) Urine Glucose (UA) Negative (NEGATIVE) Urine Ketones Negative (NEGATIVE) Urine Occult Blood Trace-intact H (NEGATIVE) Urine Nitrite Negative (NEGATIVE) Urine Bilirubin Negative (NEGATIVE) Urine Urobilinogen 0.2 (0.2-1.0) mg/dL Ur Leukocyte Esterase Negative (NEGATIVE) Urine RBC 0-5 /HPF Urine WBC 0-5 (0-5/HPF) /HPF Ur Epithelial Cells Rare (NOT SEEN) /HPF Urine Bacteria Rare (0-FEW/HPF) /HPF SARS CoV-2 RNA Rapid DAMON Positive H (NEGATIVE) 05/21/20 05/21/20 05/21/20 Range/Units 06:40 06:40 08:20 WBC 3.2 L (5.0-10.0) 10^3/uL RBC 4.63 (4.2-5.4) 10^6/uL Hgb 13.1 (12.0-16.0) g/dL Hct 39.7 (37.0-47.0) % MCV 85.7 (80-100) fL MCH 28.3 (27.0-34.0) pg MCHC 33.0 (33.0-35.0) g/dL Plt Count 178 (150-450) 10^3/uL Neut % (Auto) (42.2-75.2) % Lymph % (Auto) (20.5-50.1) % Eagle % (Auto) (2-8) % Eos % (Auto) (1.0-3.0) % Baso % (Auto) (0.0-1.0) % D-Dimer, Quantitative (0-400) ng/mL Sodium 141 (136-145) mmol/L Potassium 3.6 (3.5-5.1) mmol/L Chloride 104 (98-107) mmol/L Carbon Dioxide 30 (21-32) mmol/L Anion Gap 10.6 (7-13) mEq/L BUN 13 (7-18) mg/dL Creatinine 0.77 (0.55-1.02) mg/dL Est Cr Clr Drug Dosing 59.10 mL/min Estimated GFR (MDRD) > 60 BUN/Creatinine Ratio 16.9 (No establ ref range) Glucose 101 H (74-99) mg/dL POC Glucose (83-110) mg/dl Lactic Acid 1.2 (0.4-2.0) mmol/L Calcium 9.3 (8.5-10.1) mg/dL Phosphorus (2.6-4.7) mg/dL Magnesium (1.8-2.4) mg/dL Ferritin (8-252) mg/mL Total Bilirubin 0.3 (0.2-1.0) mg/dL AST 21 (15-37) U/L ALT 27 (14-59) U/L Alkaline Phosphatase 83 (46-116) U/L Lactate Dehydrogenase (81-234) U/L Troponin I (0.000-0.056) ng/mL C-Reactive Protein (0.0-0.9) mg/dL Total Protein 5.9 L (6.4-8.2) g/dL Albumin 2.9 L (3.4-5.0) g/dL Globulin 3.0 Albumin/Globulin Ratio 0.97 Urine Color (YELLOW) Urine Appearance (CLEAR) Urine pH (5.0-9.0) Ur Specific [place] (1.005-1.030) Urine Protein (NEGATIVE) Urine Glucose (UA) (NEGATIVE) Urine Ketones (NEGATIVE) Urine Occult Blood (NEGATIVE) Urine Nitrite (NEGATIVE) Urine Bilirubin (NEGATIVE) Urine Urobilinogen (0.2-1.0) mg/dL Ur Leukocyte Esterase (NEGATIVE) Urine RBC /HPF Urine WBC (0-5/HPF) /HPF Ur Epithelial Cells (NOT SEEN) /HPF Urine Bacteria (0-FEW/HPF) /HPF SARS CoV-2 RNA Rapid DAMON (NEGATIVE) KIN Results - Last 24 hrs: Microbiology 05/20/20 15:29 Anaerobic Blood Culture - Final Blood - Venous - Lab Draw Med Orders - Current: Current Medications Acetaminophen (Tylenol) 650 mg PO Q4H PRN PRN Reason: Pain (Mild 1-3)/fever Enoxaparin Sodium (Lovenox) 40 mg SUBCUT DAILY [facility] Last Admin: 05/21/20 08:30 Dose: 40 mg Documented by: Fludrocortisone Acetate (Florinef) 0.1 mg PO DAILY [facility] Last Admin: 05/21/20 08:30 Dose: 0.1 mg Documented by: Non-Formulary Medication (Thyroid,Pork) 60 mg PO DAILY [facility] Non-Formulary Medication (Hydrocortisone [Hydrocortisone]) 5 mg PO ASDIRECTED PRN PRN Reason: Congestion Non-Formulary Medication (Hydrocortisone [Cortef]) 2.5 mg PO DAILY [facility] Ondansetron HCl (Zofran Odt) 4 mg PO Q6H PRN PRN Reason: nausea, able to take PO Ondansetron HCl (Zofran) 4 mg IVPUSH Q6H PRN PRN Reason: Nausea/Vomiting Senna/Docusate Sodium (Senna Plus) 1 tab PO BEDTIME PRN PRN Reason: Constipation Sodium Chloride (Saline Flush) 10 ml FLUSH ASDIRECTED PRN PRN Reason: Keep Vein Open Last Admin: 05/20/20 16:03 Dose: 10 ml Documented by: Discontinued Medications Dexamethasone (Dexamethasone) 4 mg IVPUSH ONETIME ONE Stop: 05/20/20 15:17 Last Admin: 05/20/20 16:03 Dose: 4 mg Documented by: Fludrocortisone Acetate (Florinef) 1 mg PO DAILY [facility] Sodium Chloride (Normal Saline) 1,000 mls @ 250 mls/hr IV .BOLUS ONE Stop: 05/20/20 19:19 Last Admin: 05/20/20 16:01 Dose: 250 mls/hr Documented by: - Exam General: Reports: Alert, Oriented, Cooperative, No Acute Distress HEENT: Reports: Pupils Equal, Pupils Reactive, Mucous Membr. Moist/[place] Neck: Reports: Supple Lungs: Reports: Clear to Auscultation, Normal Respiratory Effort Cardiovascular: Reports: Regular Rate, Regular Rhythm GI/Abdominal Exam: Normal Bowel Sounds, Soft, Non-Tender, No Distention Extremities: Normal Inspection, Non-Tender, No Pedal Edema Skin: Reports: Warm, Dry, Intact Neurological: Reports: No New Focal Deficit Psy/Mental Status: Reports: Alert, Normal Affect, Normal Mood
== END 2020-05-21 15:20 | disposition home or self-care (01) ==
LOC: DL.ED 15:17 → DL.MS 17:54 → DL.ED 18:15
PROVIDERS: ADMIT Student in an Organized Health Care Education/Training Program; ATTEND Internal Medicine
DX: U07.1 COVID-19 (principal); E27.1 Primary adrenocortical insufficiency; E03.9 Hypothyroidism, unspecified; E78.5 Hyperlipidemia, unspecified; Z79.899 Other long term (current) drug therapy; Z88.0 Allergy status to penicillin
CPT/HCPCS: 36415; 71045; 80053; 81001; 82728; 82962; 83605; 83615; 83735; 84100; 84484; 85025; 85027; 85379; 86140; 87040; 93005; 96372; 96374; 99217; 99219; 99285; A9270; G0378; J1100; J1650; J7030; U0002; 99284

== ENCOUNTER 2020-05-27 08:04 | Inpatient (IN) | payer MEDICARE, OTHER ==
[2020-05-27] MEDS ORDERED: Sodium Chloride 0.9% 1,000 ML IV ONE (09:57)
[2020-05-27] MEDS ORDERED: Ondansetron 4 MG/2 ML SDV IVPUSH ONE (09:57)
--- NOTE | 2020-05-27 10:04 | EDM.PDOC ---
ED HPI GENERAL MEDICAL PROBLEM - General Chief Complaint: General Stated Complaint: COVID+ Time Seen by Provider: 05/27/20 09:50 Source of Information: Reports: Patient History Limitations: Reports: No Limitations - History of Present Illness INITIAL COMMENTS - FREE TEXT/NARRATIVE: This 74 yo female patient reports to the ED due to increased weakness and dizziness. The patient reports she has been admitted to [facility] earlier this month due to Acute Adrenal Insufficiency and admitted to [facility] 1 week ago due to generalized weakness and COVID. The patient reports since she was released, she has noticed that she has been very weak with no energy. The patient reports she has been attempting to drink fluids (7-8 glasses of water per day along with some orange juice), but has not been able to eat due to no appetite and nausea. The patient reports she felt like she was going to pass out yesterday and again today. The patient reports her home blood pressure was 80's/50's. The patient reports she has been taking her home medications mostly as prescribed. The patient did have a telemed appointment with her junior underwriter. Dr. Escalera (Endocrinology) did increase her hydrodortisone. The patient reports she has been taking increased doses, but has not taken as much as suggested. Onset: Gradual Duration: Day(s):, Constant, Getting Worse Location: Reports: Generalized Quality: Reports: Other Severity: Severe Improves with: Reports: None Worsens with: Reports: None Context: Reports: Other Associated Symptoms: Reports: Nausea/Vomiting, Weakness - Related Data Allergies Allergy/AdvReac Type Severity Reaction Status Date / Time Penicillins Allergy Rash Verified 05/27/20 09:30 Home Meds: Home Meds Fludrocortisone [Florinef] 0.1 mg PO DAILY 05/20/20 [History] Hydrocortisone 5 mg PO ASDIRECTED PRN 05/20/20 [History] Hydrocortisone [Cortef] 5 mg PO DAILY 05/20/20 [History] Thyroid,Pork [[place]wight Thyroid] 60 mg PO DAILY 05/20/20 [History] Social & Family History - Family History Family Medical History: Noncontributory - Living Situation & Occupation Living situation: Reports: with Family Occupation: Retired ED ROS GENERAL - Review of Systems Review Of Systems: Comprehensive ROS is negative, except as noted in HPI. ED EXAM, GENERAL - Physical Exam Exam: See Below Exam Limited By: No Limitations General Appearance: Alert, WD/WN, Moderate Distress, Thin Eye Exam: Bilateral Eye: EOMI, Normal Inspection, PERRL Ears: Normal External Exam, Normal Canal, Hearing Grossly Normal, Normal TMs Nose: Normal Inspection, Normal Mucosa, No Blood Throat/Mouth: Normal Inspection, Normal Lips, Normal Teeth, Normal Gums, Normal Oropharynx, Normal Voice, No Airway Compromise Head: Atraumatic, Normocephalic Neck: Normal Inspection, Supple, Non-Tender, Full Range of Motion Respiratory/Chest: No Respiratory Distress, Lungs Clear, Normal Breath Sounds, No Accessory Muscle Use, Chest Non-Tender Cardiovascular: Normal Peripheral Pulses, Regular Rate, Rhythm, No Edema, No Gallop, No JVD, No Murmur, No Rub GI/Abdominal: Normal Bowel Sounds, Soft, Non-Tender, No Organomegaly, No Distention, No Abnormal Bruit, No Mass (Female) Exam: Deferred Rectal (Female) Exam: Deferred Back Exam: Normal Inspection, Full Range of Motion, NT Extremities: Normal Inspection, Normal Range of Motion, Non-Tender, Normal Capillary Refill, No Pedal Edema Neurological: Alert, Oriented, CN II-XII Intact, Normal Cognition, Normal Gait, Normal Reflexes, No Motor/Sensory Deficits Psychiatric: Normal Affect, Normal Mood Skin Exam: Warm, Dry, Intact, Normal Color, No Rash Lymphatic: No Adenopathy Course - Vital Signs Last Recorded V/S: Last Vital Signs Temp 37.9 C 05/27/20 11:35 Pulse 84 05/27/20 09:13 Resp 21 H 05/27/20 09:13 BP 107/78 05/27/20 09:13 Pulse Ox 98 05/27/20 09:13 - Orders/Labs/Meds Orders: Active Orders 24 hr Category Date Time Status Admission Diagnosis [ADT] Urgent ADT 05/27/20 11:52 Ordered Admission Status [Patient Status] [ADT] Routine ADT 05/27/20 11:52 Ordered EKG Documentation Completion [RC] STAT Care 05/27/20 09:14 Active CULTURE BLOOD [BC] Stat Lab 05/27/20 09:35 Received Labs: Laboratory Tests 05/27/20 05/27/20 05/27/20 Range/Units 09:35 09:35 09:35 WBC 3.6 L (5.0-10.0) 10^3/uL RBC 4.91 (4.2-5.4) 10^6/uL Hgb 13.8 (12.0-16.0) g/dL Hct 41.9 (37.0-47.0) % MCV 85.3 (80-100) fL MCH 28.1 (27.0-34.0) pg MCHC 32.9 L (33.0-35.0) g/dL Plt Count 172 (150-450) 10^3/uL Neut % (Auto) 67.0 (42.2-75.2) % Lymph % (Auto) 25.5 (20.5-50.1) % [place] % (Auto) 6.9 (2-8) % Eos % (Auto) 0.3 L (1.0-3.0) % Baso % (Auto) 0.3 (0.0-1.0) % D-Dimer, Quantitative (0-400) ng/mL Sodium 136 (136-145) mmol/L Potassium 3.7 (3.5-5.1) mmol/L Chloride 99 (98-107) mmol/L Carbon Dioxide 31 (21-32) mmol/L Anion Gap 9.7 (7-13) mEq/L BUN 9 (7-18) mg/dL Creatinine 0.96 (0.55-1.02) mg/dL Est Cr Clr Drug Dosing 47.40 mL/min Estimated GFR (MDRD) 57 BUN/Creatinine Ratio 9.4 (No establ ref range) Glucose 105 H (74-99) mg/dL Lactic Acid 1.1 (0.4-2.0) mmol/L Calcium 8.9 (8.5-10.1) mg/dL Total Bilirubin 0.4 (0.2-1.0) mg/dL AST 30 (15-37) U/L ALT 21 (14-59) U/L Alkaline Phosphatase 75 (46-116) U/L Lactate Dehydrogenase 266 H (81-234) U/L Troponin I < 0.017 (0.000-0.056) ng/mL C-Reactive Protein 7.0 H (0.0-0.9) mg/dL Total Protein 6.0 L (6.4-8.2) g/dL Albumin 2.8 L (3.4-5.0) g/dL Globulin 3.2 Albumin/Globulin Ratio 0.88 TSH, Ultra Sensitive 1.59 (0.36-3.74) uIU/mL Urine Color (YELLOW) Urine Appearance (CLEAR) Urine pH (5.0-9.0) Ur Specific [place] (1.005-1.030) Urine Protein (NEGATIVE) Urine Glucose (UA) (NEGATIVE) Urine Ketones (NEGATIVE) Urine Occult Blood (NEGATIVE) Urine Nitrite (NEGATIVE) Urine Bilirubin (NEGATIVE) Urine Urobilinogen (0.2-1.0) mg/dL Ur Leukocyte Esterase (NEGATIVE) Urine RBC /HPF Urine WBC (0-5/HPF) /HPF Ur Epithelial Cells (NOT SEEN) /HPF Urine Bacteria (0-FEW/HPF) /HPF Urine Mucus (NOT SEEN) /LPF 05/27/20 05/27/20 Range/Units 09:35 10:04 WBC (5.0-10.0) 10^3/uL RBC (4.2-5.4) 10^6/uL Hgb (12.0-16.0) g/dL Hct (37.0-47.0) % MCV (80-100) fL MCH (27.0-34.0) pg MCHC (33.0-35.0) g/dL Plt Count (150-450) 10^3/uL Neut % (Auto) (42.2-75.2) % Lymph % (Auto) (20.5-50.1) % [place] % (Auto) (2-8) % Eos % (Auto) (1.0-3.0) % Baso % (Auto) (0.0-1.0) % D-Dimer, Quantitative 433 H (0-400) ng/mL Sodium (136-145) mmol/L Potassium (3.5-5.1) mmol/L Chloride (98-107) mmol/L Carbon Dioxide (21-32) mmol/L Anion Gap (7-13) mEq/L BUN (7-18) mg/dL Creatinine (0.55-1.02) mg/dL Est Cr Clr Drug Dosing mL/min Estimated GFR (MDRD) BUN/Creatinine Ratio (No establ ref range) Glucose (74-99) mg/dL Lactic Acid (0.4-2.0) mmol/L Calcium (8.5-10.1) mg/dL Total Bilirubin (0.2-1.0) mg/dL AST (15-37) U/L ALT (14-59) U/L Alkaline Phosphatase (46-116) U/L Lactate Dehydrogenase (81-234) U/L Troponin I (0.000-0.056) ng/mL C-Reactive Protein (0.0-0.9) mg/dL Total Protein (6.4-8.2) g/dL Albumin (3.4-5.0) g/dL Globulin Albumin/Globulin Ratio TSH, Ultra Sensitive (0.36-3.74) uIU/mL Urine Color Yellow (YELLOW) Urine Appearance Clear (CLEAR) Urine pH 7.0 (5.0-9.0) Ur Specific [place] 1.015 (1.005-1.030) Urine Protein Negative (NEGATIVE) Urine Glucose (UA) Negative (NEGATIVE) Urine Ketones Negative (NEGATIVE) Urine Occult Blood Trace-intact H (NEGATIVE) Urine Nitrite Negative (NEGATIVE) Urine Bilirubin Negative (NEGATIVE) Urine Urobilinogen 0.2 (0.2-1.0) mg/dL Ur Leukocyte Esterase Negative (NEGATIVE) Urine RBC Not seen /HPF Urine WBC 0-5 (0-5/HPF) /HPF Ur Epithelial Cells Occasional (NOT SEEN) /HPF Urine Bacteria Not seen (0-FEW/HPF) /HPF Urine Mucus Not seen (NOT SEEN) /LPF Meds: Medications Discontinued Medications Generic Name Dose Route Start Last Admin Trade Name Freq PRN Reason Stop Dose Admin Sodium Chloride 1,000 mls @ 999 mls/hr 05/27/20 09:57 05/27/20 10:53 Normal Saline IV 05/27/20 10:57 250 mls/hr .BOLUS ONE Infusion Iopamidol 100 ml 05/27/20 10:22 05/27/20 11:05 Isovue-370 (76%) IVPUSH 05/27/20 10:23 75 ml ONETIME ONE Administration Ondansetron HCl 4 mg 05/27/20 09:57 05/27/20 10:19 Zofran IVPUSH 05/27/20 09:58 4 mg ONETIME ONE Administration Departure - Departure Time of Disposition: 11:56 Disposition: Refer to Observation Condition: Poor Clinical Impression: Dehydration, COVID-19 - Discharge Information *PRESCRIPTION DRUG MONITORING PROGRAM REVIEWED*: Not Applicable *COPY OF PRESCRIPTION DRUG MONITORING REPORT IN PATIENT ALISA: Not Applicable Care Plan Goals: Discussed the patient's history, examination, lab and CT results with Dr. Steel. Dr. Steel accepted the patient for continued evaluation and further management as an observation patient at [facility] in [place]. Sepsis Event Note (ED) - Evaluation Sepsis Screening Result: Possible Sepsis Risk - Focused Exam Vital Signs: Vital Signs Temp Pulse Resp BP Pulse Ox 05/27/20 11:35 37.9 C 05/27/20 09:13 37.9 C 84 21 H 107/78 98 - My Orders Last 24 Hours: My Active Orders 05/27/20 09:14 EKG Documentation Completion [RC] STAT 05/27/20 09:35 CULTURE BLOOD [BC] Stat 05/27/20 11:52 Admission Diagnosis [ADT] Urgent Admission Status [Patient Status] [ADT] Routine - Assessment/Plan Last 24 Hours: My Active Orders 05/27/20 09:14 EKG Documentation Completion [RC] STAT 05/27/20 09:35 CULTURE BLOOD [BC] Stat 05/27/20 11:52 Admission Diagnosis [ADT] Urgent Admission Status [Patient Status] [ADT] Routine
[2020-05-27 10:12] LABS: ANION GAP 9.7 mEq/L (7-13); CHLORIDE,CL 99 mmol/L (98-107); SODIUM,NA 136 mmol/L (136-145)
[2020-05-27] MEDS ORDERED: Iopamidol 755 Mg/ML 100 ML Bottle IVPUSH ONE (10:22)
--- NOTE | 2020-05-27 11:42 | CT ---
PROCEDURE INFORMATION: Exam: CT Chest With Contrast Exam date and time: 05/27/2020 10:45 AM Age: 74 years old Clinical indication: Other: Generalized weakness, covid +, d-dimer - 433 TECHNIQUE: Imaging protocol: Computed tomography of the chest with intravenous contrast. Radiation optimization: All CT scans at this facility use at least one of these dose optimization techniques: automated exposure control; mA and/or kV adjustment per patient size (includes targeted exams where dose is matched to clinical indication); or iterative reconstruction. Contrast material: ISOVUE 370; Contrast volume: 75 ml; Contrast route: INTRAVENOUS (IV); COMPARISON: No relevant prior studies available. FINDINGS: Lungs: There are multifocal peripheral bilateral upper lobe, lingular and posterior unchanged moderate right basilar ground-glass airspace infiltrates. There are thickened interlobular septa and infiltrates demonstrate a sharp demarcation from the adjacent normal lung. The airway is patent. Pleural space: . No pneumothorax. No pleural effusion. Heart: Unremarkable. No cardiomegaly. No pericardial effusion. Mediastinum: Unremarkable. No aortic aneurysm. Limited optimal opacification of the pulmonary vascularity but no definite pulmonary embolic disease. Lymph nodes: There is a 1.6 cm subcarinal lymph node. There are subcentimeter precarinal lymph nodes measuring 8 mm and less. 1.4 cm right hilar adenopathy Bones/joints: Age-related bone density and minimal spondylitic thoracic disease. No acute fracture. Soft tissues: Unremarkable. Upper abdomen 1.7 cm well-demarcated right hypodense mass (7.8 and 11.5 Hounsfield units). IMPRESSION: 1. No evidence of pulmonary embolic disease. 2.Bilateral ground-glass infiltrates predominating on the right. Differential diagnosis includes viral and bacterial etiologies as well as acute interstitial pneumonia and pulmonary edema. 3. Small mediastinal and right hilar mild adenopathy. Short-term CT chest follow-up within 3 months recommended. 4. 2 cm simple cyst right kidney Bosniak.
[2020-05-27] MEDS ORDERED: Ondansetron 4 MG Tab.DIS PO PRN (12:53)
[2020-05-27] MEDS ORDERED: Ondansetron 4 MG/2 ML SDV IVPUSH PRN (12:53)
[2020-05-27] MEDS ORDERED: Polyethylene Glycol 3350 Powder 17 GM Packet PO PRN (12:53)
[2020-05-27] MEDS: Acetaminophen 325 MG Tab PO PRN ×2 (13:42→20:08)
[2020-05-27] MEDS: Sodium Chloride 0.9% 1,000 ML IV SCH (13:44)
[2020-05-27] MEDS ORDERED: Furosemide 20 MG/2 ML VIAL IVPUSH ONE (15:15)
--- NOTE | 2020-05-27 15:53 | PCM.HP ---
H&P History of Present Illness - General Date of Service: 05/27/20 Admit Problem/Dx: Admission Diagnosis/Problem Admission Diagnosis/Problem Pneumonia due to infectious organism - History of Present Illness Initial Comments - Free Text/Narative: Patient is a 74-year-old female with a history significant for adrenal insufficiency, dyslipidemia, atrial fibrillation, and osteopenia who presented to the ED with complaints weakness and poor oral intake since being discharged about a week ago. Reports that she has been try to keep hydrated, drinking 6-8 glasses of water and juice daily. Has not been eating at all. Feels nauseous and has loss of taste. 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 She reports that she has been laying in bed since discharge. Reports that she was LH yesterday and today. Report SBP in the low 80s today at home. Denies f/c, chest pain, shortness of breath, n/v/d/c, dysuria, hematuria, or any new symptoms. - Related Data Allergies/Adverse Reactions: Allergies Allergy/AdvReac Type Severity Reaction Status Date / Time Penicillins Allergy Rash Verified 05/27/20 09:30 Home Medications: Home Meds Fludrocortisone [Florinef] 0.1 mg PO DAILY 05/20/20 [History] Hydrocortisone [Cortef] 2.5 mg PO BID 05/20/20 [History] Thyroid,Pork [Hiram Thyroid] 60 mg PO DAILY 05/20/20 [History] Past Medical History HEENT History: Reports: Other (See Below) Other HEENT History: glasses Cardiovascular History: Reports: None Respiratory History: Reports: SOB Gastrointestinal History: Reports: None Genitourinary History: Reports: None RN ENDOCRINOLOGY History: Reports: None Neurological History: Reports: None Psychiatric History: Reports: None 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, Hypothyroidism Hematologic History: Reports: None Immunologic History: Reports: None Oncologic (Cancer) History: Reports: None Dermatologic History: Reports: None - Infectious Disease History Infectious Disease History: Reports: Novel Coronavirus - Past Surgical History Head Surgeries/Procedures: Reports: None Social & Family History - Family History Family Medical History: Noncontributory - Tobacco Use Tobacco Use Status *Q: Never Tobacco User Second Hand Smoke Exposure: No - Caffeine Use Caffeine Use: Reports: Coffee - Recreational Drug Use Recreational Drug Use: No - Living Situation & Occupation Living situation: Reports: with Family Occupation: Retired H&P Review of Systems - Review of Systems: Review Of Systems: Comprehensive ROS is negative, except as noted in HPI. Exam - Exam Exam: See Below - Vital Signs Vital Signs: Last Vital Signs Temp 99.1 F 05/27/20 15:25 Pulse 73 05/27/20 15:25 Resp 18 05/27/20 15:25 BP 117/49 L 05/27/20 15:25 Pulse Ox 94 L 05/27/20 15:25 Weight: 159 lb - Exam Quality Assessment: Supplemental Oxygen (2L via NC as O2 was dropping to 80s wit h movement. ) General: Alert, Oriented, Cooperative, Other (Ill-appearing. ) HEENT: Conjunctiva Clear, Hearing Intact, Mucosa Moist & [place] Neck: Supple, Trachea Midline Lungs: Normal Respiratory Effort, Crackles Cardiovascular: Regular Rate, Regular Rhythm, Normal S1, Normal S2 GI/Abdominal Exam: Normal Bowel Sounds, Soft, Non-Tender, No Distention Extremities: Normal Inspection, Non-Tender, No Pedal Edema Peripheral Pulses: 2+: Radial (L), Radial (R), Dorsalis Pedis (L), Dorsalis Pedis (R) Skin: Warm, Dry, Intact Neuro Extensive - Mental Status: Alert, Oriented x3, Normal Mood/Affect Psychiatric: Alert, Normal Affect, Normal Mood - Patient Data Lab Results Last 24 hrs: Laboratory Results - last 24 hr 05/27/20 05/27/20 05/27/20 Range/Units 09:35 09:35 09:35 WBC 3.6 L (5.0-10.0) 10^3/uL RBC 4.91 (4.2-5.4) 10^6/uL Hgb 13.8 (12.0-16.0) g/dL Hct 41.9 (37.0-47.0) % MCV 85.3 (80-100) fL MCH 28.1 (27.0-34.0) pg MCHC 32.9 L (33.0-35.0) g/dL Plt Count 172 (150-450) 10^3/uL Neut % (Auto) 67.0 (42.2-75.2) % Lymph % (Auto) 25.5 (20.5-50.1) % [place] % (Auto) 6.9 (2-8) % Eos % (Auto) 0.3 L (1.0-3.0) % Baso % (Auto) 0.3 (0.0-1.0) % PT (9.0-12.0) SEC INR (0.9-1.2) D-Dimer, Quantitative (0-400) ng/mL Sodium 136 (136-145) mmol/L Potassium 3.7 (3.5-5.1) mmol/L Chloride 99 (98-107) mmol/L Carbon Dioxide 31 (21-32) mmol/L Anion Gap 9.7 (7-13) mEq/L BUN 9 (7-18) mg/dL Creatinine 0.96 (0.55-1.02) mg/dL Est Cr Clr Drug Dosing 47.40 mL/min Estimated GFR (MDRD) 57 BUN/Creatinine Ratio 9.4 (No establ ref range) Glucose 105 H (74-99) mg/dL Lactic Acid 1.1 (0.4-2.0) mmol/L Calcium 8.9 (8.5-10.1) mg/dL Total Bilirubin 0.4 (0.2-1.0) mg/dL AST 30 (15-37) U/L ALT 21 (14-59) U/L Alkaline Phosphatase 75 (46-116) U/L Lactate Dehydrogenase 266 H (81-234) U/L Troponin I < 0.017 (0.000-0.056) ng/mL C-Reactive Protein 7.0 H (0.0-0.9) mg/dL Total Protein 6.0 L (6.4-8.2) g/dL Albumin 2.8 L (3.4-5.0) g/dL Globulin 3.2 Albumin/Globulin Ratio 0.88 TSH, Ultra Sensitive 1.59 (0.36-3.74) uIU/mL Urine Color (YELLOW) Urine Appearance (CLEAR) Urine pH (5.0-9.0) Ur Specific [place] (1.005-1.030) Urine Protein (NEGATIVE) Urine Glucose (UA) (NEGATIVE) Urine Ketones (NEGATIVE) Urine Occult Blood (NEGATIVE) Urine Nitrite (NEGATIVE) Urine Bilirubin (NEGATIVE) Urine Urobilinogen (0.2-1.0) mg/dL Ur Leukocyte Esterase (NEGATIVE) Urine RBC /HPF Urine WBC (0-5/HPF) /HPF Ur Epithelial Cells (NOT SEEN) /HPF Urine Bacteria (0-FEW/HPF) /HPF Urine Mucus (NOT SEEN) /LPF Blood Type 05/27/20 05/27/20 05/27/20 Range/Units 09:35 09:35 09:43 WBC (5.0-10.0) 10^3/uL RBC (4.2-5.4) 10^6/uL Hgb (12.0-16.0) g/dL Hct (37.0-47.0) % MCV (80-100) fL MCH (27.0-34.0) pg MCHC (33.0-35.0) g/dL Plt Count (150-450) 10^3/uL Neut % (Auto) (42.2-75.2) % Lymph % (Auto) (20.5-50.1) % [place] % (Auto) (2-8) % Eos % (Auto) (1.0-3.0) % Baso % (Auto) (0.0-1.0) % PT 9.8 (9.0-12.0) SEC INR 1.0 (0.9-1.2) D-Dimer, Quantitative 433 H (0-400) ng/mL Sodium (136-145) mmol/L Potassium (3.5-5.1) mmol/L Chloride (98-107) mmol/L Carbon Dioxide (21-32) mmol/L Anion Gap (7-13) mEq/L BUN (7-18) mg/dL Creatinine (0.55-1.02) mg/dL Est Cr Clr Drug Dosing mL/min Estimated GFR (MDRD) BUN/Creatinine Ratio (No establ ref range) Glucose (74-99) mg/dL Lactic Acid (0.4-2.0) mmol/L Calcium (8.5-10.1) mg/dL Total Bilirubin (0.2-1.0) mg/dL AST (15-37) U/L ALT (14-59) U/L Alkaline Phosphatase (46-116) U/L Lactate Dehydrogenase (81-234) U/L Troponin I (0.000-0.056) ng/mL C-Reactive Protein (0.0-0.9) mg/dL Total Protein (6.4-8.2) g/dL Albumin (3.4-5.0) g/dL Globulin Albumin/Globulin Ratio TSH, Ultra Sensitive (0.36-3.74) uIU/mL Urine Color (YELLOW) Urine Appearance (CLEAR) Urine pH (5.0-9.0) Ur Specific [place] (1.005-1.030) Urine Protein (NEGATIVE) Urine Glucose (UA) (NEGATIVE) Urine Ketones (NEGATIVE) Urine Occult Blood (NEGATIVE) Urine Nitrite (NEGATIVE) Urine Bilirubin (NEGATIVE) Urine Urobilinogen (0.2-1.0) mg/dL Ur Leukocyte Esterase (NEGATIVE) Urine RBC /HPF Urine WBC (0-5/HPF) /HPF Ur Epithelial Cells (NOT SEEN) /HPF Urine Bacteria (0-FEW/HPF) /HPF Urine Mucus (NOT SEEN) /LPF Blood Type A POSITIVE 05/27/20 Range/Units 10:04 WBC (5.0-10.0) 10^3/uL RBC (4.2-5.4) 10^6/uL Hgb (12.0-16.0) g/dL Hct (37.0-47.0) % MCV (80-100) fL MCH (27.0-34.0) pg MCHC (33.0-35.0) g/dL Plt Count (150-450) 10^3/uL Neut % (Auto) (42.2-75.2) % Lymph % (Auto) (20.5-50.1) % [place] % (Auto) (2-8) % Eos % (Auto) (1.0-3.0) % Baso % (Auto) (0.0-1.0) % PT (9.0-12.0) SEC INR (0.9-1.2) D-Dimer, Quantitative (0-400) ng/mL Sodium (136-145) mmol/L Potassium (3.5-5.1) mmol/L Chloride (98-107) mmol/L Carbon Dioxide (21-32) mmol/L Anion Gap (7-13) mEq/L BUN (7-18) mg/dL Creatinine (0.55-1.02) mg/dL Est Cr Clr Drug Dosing mL/min Estimated GFR (MDRD) BUN/Creatinine Ratio (No establ ref range) Glucose (74-99) mg/dL Lactic Acid (0.4-2.0) mmol/L Calcium (8.5-10.1) mg/dL Total Bilirubin (0.2-1.0) mg/dL AST (15-37) U/L ALT (14-59) U/L Alkaline Phosphatase (46-116) U/L Lactate Dehydrogenase (81-234) U/L Troponin I (0.000-0.056) ng/mL C-Reactive Protein (0.0-0.9) mg/dL Total Protein (6.4-8.2) g/dL Albumin (3.4-5.0) g/dL Globulin Albumin/Globulin Ratio TSH, Ultra Sensitive (0.36-3.74) uIU/mL Urine Color Yellow (YELLOW) Urine Appearance Clear (CLEAR) Urine pH 7.0 (5.0-9.0) Ur Specific [place] 1.015 (1.005-1.030) Urine Protein Negative (NEGATIVE) Urine Glucose (UA) Negative (NEGATIVE) Urine Ketones Negative (NEGATIVE) Urine Occult Blood Trace-intact H (NEGATIVE) Urine Nitrite Negative (NEGATIVE) Urine Bilirubin Negative (NEGATIVE) Urine Urobilinogen 0.2 (0.2-1.0) mg/dL Ur Leukocyte Esterase Negative (NEGATIVE) Urine RBC Not seen /HPF Urine WBC 0-5 (0-5/HPF) /HPF Ur Epithelial Cells Occasional (NOT SEEN) /HPF Urine Bacteria Not seen (0-FEW/HPF) /HPF Urine Mucus Not seen (NOT SEEN) /LPF Blood Type Result Diagrams: 05/27/20 09:35 05/27/20 09:35 - Problem List (1) Pneumonia due to COVID-19 virus SNOMED Code(s): 626369398845538646 ICD Code: U07.1 - COVID-19; J12.89 - OTHER VIRAL PNEUMONIA Status: Acute Current Visit: Yes (2) Acute respiratory failure with hypoxia SNOMED Code(s): 22361452, 324462976 ICD Code: J96.01 - ACUTE RESPIRATORY FAILURE WITH HYPOXIA Status: Acute Current Visit: Yes (3) Addisons disease SNOMED Code(s): 205843235 ICD Code: E27.1 - PRIMARY ADRENOCORTICAL INSUFFICIENCY Status: Acute Current Visit: No (4) Dehydration SNOMED Code(s): 88073135 ICD Code: E86.0 - DEHYDRATION Status: Acute Current Visit: No (5) Dyslipidemia SNOMED Code(s): 389127333 ICD Code: E78.5 - HYPERLIPIDEMIA, UNSPECIFIED Status: Acute Current Visit: No (6) Hypothyroidism SNOMED Code(s): 93945255 ICD Code: E03.9 - HYPOTHYROIDISM, UNSPECIFIED Status: Acute Current Visit: No Problem List Initiated/Reviewed/Updated: Yes Orders Last 24hrs: Active Orders 24 hr Category Date Time Status Admission Diagnosis [ADT] Urgent ADT 05/27/20 11:52 Ordered Admission Status [Patient Status] [ADT] Routine ADT 05/27/20 11:52 Active Intake and Output [RC] QSHIFT Care 05/27/20 12:54 Active Oxygen Therapy [RC] .PRN Care 05/27/20 12:53 Active Up With Assistance [RC] ASDIRECTED Care 05/27/20 12:53 Active VTE/DVT Education [RC] PER UNIT ROUTINE Care 05/27/20 12:53 Active Verify Patient Consent Obtain [RC] ASDIRECTED Care 05/27/20 12:59 Active Vital Signs [RC] Q4H Care 05/27/20 12:53 Active Regular Diet [DIET] Diet 05/27/20 Lunch Active ABO/RH TYPE [BBK] Routine Lab 05/27/20 09:43 Results BASIC METABOLIC PANEL,BMP [CHEM] DAILY Lab 05/28/20 05:00 Ordered BASIC METABOLIC PANEL,BMP [CHEM] DAILY Lab 05/29/20 05:00 Ordered BASIC METABOLIC PANEL,BMP [CHEM] DAILY Lab 05/30/20 05:00 Ordered C-REACTIVE PROTEIN [CHEM] DAILY Lab 05/28/20 05:00 Ordered C-REACTIVE PROTEIN [CHEM] DAILY Lab 05/29/20 05:00 Ordered C-REACTIVE PROTEIN [CHEM] DAILY Lab 05/30/20 05:00 Ordered CBC WITH AUTO DIFF [HEME] DAILY Lab 05/28/20 05:00 Ordered CBC WITH AUTO DIFF [HEME] DAILY Lab 05/29/20 05:00 Ordered CBC WITH AUTO DIFF [HEME] DAILY Lab 05/30/20 05:00 Ordered CREATINE KINASE,CK [CHEM] DAILY Lab 05/28/20 05:11 Ordered CREATINE KINASE,CK [CHEM] DAILY Lab 05/29/20 05:11 Ordered CULTURE BLOOD [BC] Stat Lab 05/27/20 09:35 Received D-DIMER QUANTITATIVE [COAG] DAILY Lab 05/28/20 05:00 Ordered D-DIMER QUANTITATIVE [COAG] DAILY Lab 05/29/20 05:00 Ordered D-DIMER QUANTITATIVE [COAG] DAILY Lab 05/30/20 05:00 Ordered FERRITIN [CHEM] DAILY Lab 05/28/20 05:00 Ordered FERRITIN [CHEM] DAILY Lab 05/29/20 05:00 Ordered FERRITIN [CHEM] DAILY Lab 05/30/20 05:00 Ordered FRESH FROZEN PLASMA [BBK] Routine Lab 05/27/20 09:43 Results HEPATIC FUNCTION PANEL,HFP [CHEM] Stat Lab 05/28/20 05:00 Ordered LACTATE DEHYDROGENASE,LDH [CHEM] DAILY Lab 05/28/20 05:00 Ordered LACTATE DEHYDROGENASE,LDH [CHEM] DAILY Lab 05/29/20 05:00 Ordered LACTATE DEHYDROGENASE,LDH [CHEM] DAILY Lab 05/30/20 05:00 Ordered LACTATE SEPSIS W/ REFLEX [CHEM] DAILY Lab 05/28/20 05:00 Ordered LACTATE SEPSIS W/ REFLEX [CHEM] DAILY Lab 05/29/20 05:00 Ordered LACTATE SEPSIS W/ REFLEX [CHEM] DAILY Lab 05/30/20 05:00 Ordered PROCALCITONIN [REF] Stat Lab 05/27/20 09:35 Received Acetaminophen [TylenoL] Med 05/27/20 12:53 Active 650 mg PO Q4H PRN Enoxaparin [Lovenox] Med 05/28/20 13:30 Active 40 mg SUBCUT DAILY Fludrocortisone [Florinef] Med 05/28/20 09:00 Active 0.1 mg PO DAILY Hydrocortisone [Cortef] Med 05/28/20 09:00 Pending 5 mg PO DAILY Ondansetron [Zofran ODT] Med 05/27/20 12:53 Active 4 mg PO Q6H PRN Ondansetron [Zofran] Med 05/27/20 12:53 Active 4 mg IVPUSH Q6H PRN Remdesivir (Eua) [Remdesivir (EUA)] 100 mg Med 05/28/20 14:00 Active Sodium Chloride 0.9% [Normal Saline] 230 ml IV Q24H Sodium Chloride 0.9% [Normal Saline] 1,000 ml Med 05/27/20 13:00 Active IV ASDIRECTED Thyroid Med 05/28/20 09:00 Active 60 mg PO DAILY dexAMETHasone [Dexamethasone] Med 05/28/20 09:00 Active 6 mg IVPUSH DAILY polyethylene glycoL 3350 [MiraLAX] Med 05/27/20 12:53 Active 17 gm PO DAILY PRN Isolation [COMM] Stat Oth 05/27/20 12:59 Active Transfuse Fresh Frozen Plasma [COMM] Routine Oth 05/27/20 12:59 Ordered Resuscitation Status Routine Resus Stat 05/27/20 12:53 Ordered Medication Orders Acetaminophen (Tylenol) 650 mg PO Q4H PRN PRN Reason: Pain Last Admin: 05/27/20 13:42 Dose: 650 mg Documented by: BAMBI Dexamethasone (Dexamethasone) 6 mg IVPUSH DAILY LINNEA Stop: 06/06/20 09:01 Enoxaparin Sodium (Lovenox) 40 mg SUBCUT DAILY [facility] Fludrocortisone Acetate (Florinef) 0.1 mg PO DAILY [facility] Sodium Chloride (Normal Saline) 1,000 mls @ 75 mls/hr IV ASDIRECTED LINNEA Last Admin: 05/27/20 13:44 Dose: 75 mls/hr Documented by: BAMBI Remdesivir 100 mg/ Sodium (Chloride) 230 mls @ 230 mls/hr IV Q24H LINNEA Stop: 05/31/20 14:59 Thyroid 60 Mg Pt (Own Med) 60 mg PO DAILY [facility] Non-Formulary Medication (Hydrocortisone [Cortef]) 5 mg PO DAILY [facility] Ondansetron HCl (Zofran Odt) 4 mg PO Q6H PRN PRN Reason: nausea, able to take PO Ondansetron HCl (Zofran) 4 mg IVPUSH Q6H PRN PRN Reason: Nausea/Vomiting Polyethylene Glycol (Miralax) 17 gm PO DAILY PRN PRN Reason: Constipation Assessment/Plan Comment:: #Acute respiratory failure with hypoxia #Pneumonia due to COVID-19 infection: Patient with tachycardia and WBC count <4. No chest pain, shortness of, nausea, vomiting, diarrhea, constipation, dysuria, hematuria, or any new symptoms. CT finding of bilateral infiltrate concerning for pneumonia. O2 saturation of -COVID-19 labs daily -Remdesivir -Dexamethasone -Convalescent plasma -Supplemental O2, titrate to SpO2 >92% - I spoke with patient and provided information about Remdesevir treatment as being under emergency use authorization (EUA) and not fully FDA approved or revi ewed. I discussed potential side effects including liver abnormalities. Also discussed other potential treatment options that are currently not FDA approved to treat COVID-19. Patient gives permission for Remdesevir. #History of adrenal insufficiency: Patient is currently stable with normal blood pressure and electrolytes -Hold hydrocortisone -Start decadron #Dyslipidemia Continue home steroid #Hypothyroidism Continue Synthroid DVT prophylaxis: Lovenox Diet: General diet Code status: Full code
[2020-05-28] MEDS: Acetaminophen 325 MG Tab PO PRN ×4 (00:13→22:25)
[2020-05-28] MEDS: Sodium Chloride 0.9% 1,000 ML IV SCH ×2 (03:34→22:24)
[2020-05-28 07:13] LABS: CHLORIDE,CL 104 mmol/L (98-107); SODIUM,NA 140 mmol/L (136-145)
[2020-05-28] MEDS ORDERED: Potassium Chloride 10 MEQ Tab.ER PO ONE ×2 (07:34→10:30)
[2020-05-28] MEDS ORDERED: HYDROCORTISONE 5 MG PO SCH (09:00)
--- NOTE | 2020-05-28 10:27 | PN ---
DATE: 05/28/2020 SUBJECTIVE: The patient is a 74-year-old female who was admitted with COVID-19 pneumonia. The patient last night had a temperature spike and blood culture was sent. The patient is still complaining of some weakness and mild cough, but denies any other significant complaints and no chest pain, abdominal pain, orthopnea, or PND. LABORATORY DATA: Lab workup this morning: WBC is 3.6, hemoglobin is 11.7, hematocrit is 36, platelet is 149. Basic metabolic panel, potassium is 3. The rest of the panel unremarkable. Lactic acid is 0.9. Calcium 7.8, ferritin is 383. LDH is 260. C-reactive protein is 7.7, total protein is 4.7, albumin is 2.1. OBJECTIVE: Vital Signs: Blood pressure is 145/54, pulse of 55, respirations 20, temperature of 100.7, saturation is 95% on 2 L per nasal cannula. Heart: Regular rate and rhythm. Normal S1 and S2. No gallops. No rubs. Lungs: Coarse breath sounds bilaterally, with breath sounds equal. No significant crackles. No wheezing. Abdomen: Soft, nontender. Bowel sounds positive. Extremities: Negative for any pedal edema. No calf tenderness. MEDICATIONS: Reviewed. PLAN: We will continue with her present management. She will also be getting her convalescent plasma for COVID-19 today and I am also going to empirically start the patient on IV antibiotics because of the temperature spikes. Her procalcitonin level is still pending though. We will put her on Rocephin 1 g IV daily and azithromycin 500 mg IV daily. [facility] /[id number]
[2020-05-28] MEDS: THYROID 60 MG PO SCH (10:30)
[2020-05-28] MEDS: Fludrocortisone 0.1 MG Tab PO SCH (10:30)
[2020-05-28] MEDS: Azithromycin 500 MG in Sodium Chloride 0.9% 250 ML IV SCH (10:33)
[2020-05-28] MEDS: Dexamethasone 4 MG/ML SDV IVPUSH SCH (10:33)
--- NOTE | 2020-05-28 11:30 | PN ---
DATE: 05/28/2020 CONTINUATION: We will also give her potassium 40 mEq p.o. x1 because of her low potassium level. We will recheck basic metabolic panel in the morning. [facility] /[id number]
[2020-05-28] MEDS: cefTRIAXone 1 GM in Sodium Chloride 0.9% 50 ML IV SCH (12:40)
[2020-05-28] MEDS: Enoxaparin 40 MG/0.4 ML Syringe SUBCUT SCH (14:11)
[2020-05-28] MEDS ORDERED: Zolpidem 5 MG Tab PO PRN (21:00)
[2020-05-29 07:01] LABS: ANION GAP 9.7 mEq/L (7-13); CHLORIDE,CL 107 mmol/L (98-107); SODIUM,NA 143 mmol/L (136-145)
[2020-05-29] MEDS: Azithromycin 500 MG in Sodium Chloride 0.9% 250 ML IV SCH (09:41)
[2020-05-29] MEDS: Dexamethasone 4 MG/ML SDV IVPUSH SCH (09:44)
[2020-05-29] MEDS: THYROID 60 MG PO SCH (09:44)
[2020-05-29] MEDS: Fludrocortisone 0.1 MG Tab PO SCH (09:44)
[2020-05-29] MEDS: Enoxaparin 40 MG/0.4 ML Syringe SUBCUT SCH (09:45)
[2020-05-29] MEDS: cefTRIAXone 1 GM in Sodium Chloride 0.9% 50 ML IV SCH (11:10)
[2020-05-29] MEDS: Sodium Chloride 0.9% 10 ML Syringe FLUSH PRN ×4 (12:10→20:12)
--- NOTE | 2020-05-29 12:18 | PN ---
DATE: 05/29/2020 Partial dictation marker #1. SUBJECTIVE: The patient is feeling much better this morning, and the body aches and shortness of breath have improved. The patient currently denies any ongoing complaints except of some puffiness on her hands from the IV fluids. Otherwise, no other concerns. LABORATORY DATA: Lab workup this morning. CBC: WBC is 3.9, hemoglobin is 12.4, hematocrit is 38.7, platelet is 172. Chem-6 unremarkable. Glucose is 128. LDH is 297. C-reactive protein is 9.4. OBJECTIVE: Vital Signs: Blood pressure is 127/60, pulse of 81, respirations of 18, temperature of 98.3, saturation is 93% on 1.5 L of oxygen per nasal cannula. Heart: Regular rate and rhythm. Normal S1 and S2. No gallops. No rubs. Lungs: Equal bilaterally. Still has some coarse breath sounds and mild crackles on the right lung field, but no wheezing. Abdomen: Soft, nontender. Bowel sounds positive. Extremities: Negative for any pedal edema. No calf tenderness. MEDICATIONS: Reviewed. PLAN: We will discontinue the IV fluids and continue with the rest of her management and we will finish the 5-day course of Remdesivir. [facility] /[id number]
[2020-05-29] MEDS: Acetaminophen 325 MG Tab PO PRN (21:46)
[2020-05-30 07:02] LABS: ANION GAP 11.1 mEq/L (7-13); CHLORIDE,CL 108 mmol/L (98-107); SODIUM,NA 143 mmol/L (136-145)
[2020-05-30] MEDS ORDERED: Potassium Chloride 10 MEQ Tab.ER PO ONE (09:59)
[2020-05-30] MEDS: Azithromycin 500 MG in Sodium Chloride 0.9% 250 ML IV SCH (10:28)
[2020-05-30] MEDS: Fludrocortisone 0.1 MG Tab PO SCH (10:35)
[2020-05-30] MEDS: Dexamethasone 4 MG/ML SDV IVPUSH SCH (10:35)
[2020-05-30] MEDS: Enoxaparin 40 MG/0.4 ML Syringe SUBCUT SCH (10:35)
[2020-05-30] MEDS: THYROID 60 MG PO SCH (10:36)
--- NOTE | 2020-05-30 11:32 | PN ---
DATE: 05/30/2020 SUBJECTIVE: The patient this morning is feeling slightly lightheaded and not as good as yesterday, but the patient denies any worsening of shortness of breath or any chest pain. She still has some mild coughing episodes. Otherwise, no other complaints. LABORATORY DATA: Lab workup this morning; WBC 8.7, hemoglobin is 11.7, hematocrit is 35.9, platelet is 228. Chem-6: Potassium is 3.1, chloride is 108, and the rest of the panel unremarkable. Ferritin is 729, LDH is 292. C- reactive protein is 4.3, slight improvement. OBJECTIVE: Vital Signs: Blood pressure is 117/67, pulse 72, respirations 20, temperature of 97.6, saturation is 87% on 2.5 L per nasal cannula. Heart: Regular rate and rhythm. Normal S1 and S2. No gallops. No rubs. Lungs: Equal bilaterally. There are still some mild crackles on the right lung field, but no wheezing. Abdomen: Soft, nontender. Bowel sounds positive. Extremities: Negative for any significant pedal edema. No calf tenderness. MEDICATIONS: Reviewed. PLAN: We will continue with her present management and I am going to give her potassium 40 mEq p.o. x1 today. We will recheck a basic metabolic panel in a.m. [facility] /[id number]
[2020-05-30] MEDS: cefTRIAXone 1 GM in Sodium Chloride 0.9% 50 ML IV SCH (12:23)
[2020-05-30] MEDS: Sodium Chloride 0.9% 10 ML Syringe IV SCH (15:52)
[2020-05-30] MEDS ORDERED: Fludrocortisone 0.1 MG Tab PO ONE (15:58)
[2020-05-30] MEDS: Acetaminophen 325 MG Tab PO PRN (21:56)
[2020-05-30] MEDS: Sodium Chloride 0.9% 10 ML Syringe FLUSH PRN (21:57)
[2020-05-31 07:23] LABS: ANION GAP 9.5 mEq/L (7-13); CHLORIDE,CL 109 mmol/L (98-107); SODIUM,NA 144 mmol/L (136-145)
[2020-05-31] MEDS ORDERED: Potassium Chloride 10 MEQ Tab.ER PO ONE (09:38)
--- NOTE | 2020-05-31 10:09 | PN ---
DATE: 05/31/2020 SUBJECTIVE: The patient is feeling much better this morning as compared to yesterday morning. The patient denies any significant ongoing complaints. Denies any fever, chills, chest pain, or worsening of shortness of breath. LABORATORY DATA: Lab workup this morning; sodium is 144, potassium is 3.5 (improvement), chloride of 109 and the rest of the Chem-6 is unremarkable. Glucose is 118. Liver function test, AST is 42. The rest of the panel unremarkable. OBJECTIVE: Vital Signs: Blood pressure is 125/61, pulse 67, respirations of 18, temperature of 97.3, saturation is 91% on 3 L per nasal cannula. Heart: Regular rate and rhythm. Normal S1 and S2. No gallops. No rubs. Lungs: Still remarkable for some coarse breath sounds and mild crackles on the right lung field, but no wheezing. Abdomen: Soft, nontender. Bowel sounds positive. Extremities: Negative for any significant pedal edema. No calf tenderness. PLAN: We will continue with her present management. Continue with IV antibiotics and IV dexamethasone as well as remdesivir. I am going to give her another dose of 40 mEq oral potassium x1 today. [facility] /[id number]
[2020-05-31] MEDS: Dexamethasone 4 MG/ML SDV IVPUSH SCH (10:25)
[2020-05-31] MEDS: Enoxaparin 40 MG/0.4 ML Syringe SUBCUT SCH (10:26)
[2020-05-31] MEDS: Fludrocortisone 0.1 MG Tab PO SCH (10:26)
[2020-05-31] MEDS: Azithromycin 500 MG in Sodium Chloride 0.9% 250 ML IV SCH (10:26)
[2020-05-31] MEDS: THYROID 60 MG PO SCH (10:27)
[2020-05-31] MEDS: cefTRIAXone 1 GM in Sodium Chloride 0.9% 50 ML IV SCH (12:21)
[2020-05-31] MEDS: Sodium Chloride 0.9% 10 ML Syringe IV SCH (15:51)
[2020-05-31] MEDS: Acetaminophen 325 MG Tab PO PRN (20:59)
[2020-06-01] MEDS: Dexamethasone 4 MG/ML SDV IVPUSH SCH (09:02)
[2020-06-01] MEDS: Azithromycin 500 MG in Sodium Chloride 0.9% 250 ML IV SCH (09:10)
[2020-06-01] MEDS: Dexamethasone 2 MG Tab PO SCH (09:12)
[2020-06-01] MEDS: THYROID 60 MG PO SCH (09:12)
[2020-06-01] MEDS: Enoxaparin 40 MG/0.4 ML Syringe SUBCUT SCH (09:13)
--- NOTE | 2020-06-01 09:14 | PN ---
DATE: 06/01/2020 SUBJECTIVE: The patient continues to do well and she denies any chest pain, shortness of breath. Denies any lightheadedness nor any other significant complaints. But her oxygen saturation is still needing oxygen to keep her saturation above 90. OBJECTIVE: Vital Signs: Blood pressure is 140/66, pulse 67, respirations 20, temperature of 98.4, and saturation is 96% on 3 L per nasal cannula. Heart: Regular rate and rhythm. Normal S1 and S2. No gallops. No rubs. Lungs: Equal bilaterally. There are still some faint crackles on the right lung base (improving), but no wheezing, and breath sounds equal. Abdomen: Soft, nontender. Bowel sounds positive. Extremities: Negative for any significant pedal edema. No calf tenderness. MEDICATIONS: Reviewed. PLAN: We will continue with her present management, but I am going to switch her dexamethasone to p.o. [facility] /[id number]
[2020-06-01] MEDS: Fludrocortisone 0.1 MG Tab PO SCH (09:17)
[2020-06-01] MEDS: cefTRIAXone 1 GM in Sodium Chloride 0.9% 50 ML IV SCH (10:25)
[2020-06-01] MEDS: Sodium Chloride 0.9% 10 ML Syringe FLUSH PRN (11:19)
[2020-06-02] MEDS: Dexamethasone 2 MG Tab PO SCH (09:38)
[2020-06-02] MEDS: THYROID 60 MG PO SCH (09:39)
[2020-06-02] MEDS: Fludrocortisone 0.1 MG Tab PO SCH (09:39)
[2020-06-02] MEDS: Azithromycin 500 MG in Sodium Chloride 0.9% 250 ML IV SCH (09:41)
[2020-06-02] MEDS: Enoxaparin 40 MG/0.4 ML Syringe SUBCUT SCH (10:31)
--- NOTE | 2020-06-02 10:41 | DISCH ---
FINAL DIAGNOSES: 1. Hypoxia. 2. Pneumonia due to COVID-19 infection. 3. Adrenal insufficiency. 4. Dyslipidemia. 5. Hypothyroidism. BRIEF HISTORY OF PRESENT ILLNESS: Please see H and P. PERTINENT LABS, X-RAY, AND OTHER TESTS ON ADMISSION: See H and P. HOSPITAL COURSE: The patient was admitted to [facility], and the patient was started on deep vein thrombosis prophylaxis. She was started on dexamethasone 6 mg IV and also given 2 units of convalescent plasma. Because she continued to have fever, IV antibiotics (Rocephin and azithromycin IV) were also started. The patient did well during the hospitalization. The patient's potassium was running low, so this was repleted. She had a slow improvement because her oxygenation was still dropping without oxygen, especially with minimal activity. Because of this, she was continued on oxygen at 3 L per nasal cannula and she will be discharged home on oxygen. I have also instructed the patient that I will be continuing her oral dexamethasone 6 mg daily for the next 4 days and then this will be reduced to 4 mg daily for the next week after that and then cut down to 2 mg of dexamethasone indefinitely until she sees her [facility] in [place], which we are going to make a followup appointment with her in the next 10 to 14 days, and this is because of her [place] disease. We will also continue with oral antibiotics for the next 1 week. We will also have her follow up with Dr. Garcia in 10 to 14 days, and we will also resume her other home medication. CONDITION ON DISCHARGE: Improved. [facility] /[id number]
[2020-06-02] MEDS: cefTRIAXone 1 GM in Sodium Chloride 0.9% 50 ML IV SCH (10:56)
--- NOTE | 2020-06-02 10:58 | PN ---
DATE: 06/02/2020 SUBJECTIVE: The patient had a good night sleep and she is feeling good this morning and she continues to do well, but the patient's oxygen saturation, is still requiring supplemental oxygen per nasal cannula to keep her saturation above 90%. The patient denies though any chest pain, shortness of breath, fever, chills, abdominal pain, nor any other complaints. OBJECTIVE: Vital Signs: Blood pressure is 150/68, pulse 72, respirations of 20, temperature of 96.8, saturation is 95% on 3 L per nasal cannula. Heart: Regular rate and rhythm. Normal S1 and S2. No gallops. No rubs. Lungs: Equal bilaterally. No significant wheezing. The crackles on the right lung field have improved. Abdomen: Soft, nontender. Bowel sounds positive Extremities: Negative for any pedal edema. No calf tenderness. MEDICATIONS: Reviewed. PLAN: We will discharge the patient home today. We will continue with dexamethasone for the next 4 days at 6 mg a day and then cut down to 4 mg daily for the next 1 week and 2 mg after that indefinitely until she sees her tip mender in [place]. We will also set her up followup appointment with Dr. Garcia. We will also continue with oral antibiotics for the next 7 days. We will resume her previous home medication. [facility] /[id number]
--- NOTE | 2020-06-03 12:49 | DISCH ---
ADDENDUM: The patient had exercise desaturation study prior to discharge and the patient walked for 3 minutes and saturation at 3 minutes was 90% on room air. The patient does not need home oxygen. [facility] /[id number]
== END 2020-06-02 12:00 | disposition home or self-care (01) | DRG 177 ==
LOC: DL.ED 08:04 → OBSVTOIN 11:52 → DL.MS 11:52
PROVIDERS: ADMIT Internal Medicine; ATTEND Internal Medicine
PROC: XW13325 Transfusion of Convalescent Plasma (Nonautologous) into Peripheral Vein, Percutaneous Approach, New Technology Group 5 (ICD-10-PCS; principal; 2020-05-27)
PROC: XW033E5 Introduction of Remdesivir Anti-infective into Peripheral Vein, Percutaneous Approach, New Technology Group 5 (ICD-10-PCS; 2020-05-27)
PROC: 8E0ZXY6 Isolation (ICD-10-PCS; 2020-05-27)
DX: U07.1 COVID-19 (principal); J12.89 Other viral pneumonia; J96.01 Acute respiratory failure with hypoxia; E27.1 Primary adrenocortical insufficiency; E78.5 Hyperlipidemia, unspecified; E03.9 Hypothyroidism, unspecified; I48.91 Unspecified atrial fibrillation; H54.7 Unspecified visual loss; Z88.0 Allergy status to penicillin; M85.80 Other specified disorders of bone density and structure, unspecified site; E86.0 Dehydration; Z99.81 Dependence on supplemental oxygen; Z88.1 Allergy status to other antibiotic agents; Z79.899 Other long term (current) drug therapy; Z79.890 Hormone replacement therapy
CPT/HCPCS: 36415; 36430; 71260; 80048; 80053; 80076; 81001; 82550; 82728; 83605; 83615; 84145; 84443; 84484; 85025; 85379; 85610; 86140; 86900; 86901; 87040; 93005; 94618; 96361; 96365; 96374; 96375; 99284; 99285-25; A9270-GY; G0378; J0456; J0696; J1100; J1650; J1940; J2405; J7030; J7050; J8540; P9017; Q9967

== ENCOUNTER 2022-07-13 17:41 | Emergency (ER) | payer MEDICARE, OTHER ==
[2022-07-13] MEDS ORDERED: Nitrofurantoin Monohydrate/Macrocrystalline 100 MG Cap PO ONE ×2 (17:42→21:35)
[2022-07-13] MEDS ORDERED: cloNIDine 0.1 MG Tab PO ONE ×2 (17:42→20:29)
[2022-07-13] MEDS ORDERED: Sodium Chloride 0.9% 10 ML Syringe FLUSH PRN (17:57)
[2022-07-13 18:56] LABS: ANION GAP 11.7 mEq/L (7-13); CHLORIDE,CL 106 mmol/L (98-107); SODIUM,NA 141 mmol/L (136-145)
[2022-07-13 18:57] LABS: ESTIMATED GFR 66 mL/min (>=60)
[2022-07-13] MEDS ORDERED: cloNIDine 0.1 MG Tab ONE (21:49)
[2022-07-13] MEDS ORDERED: Nitrofurantoin Monohydrate/Macrocrystalline 100 MG Cap ONE (21:50)
== END 2022-07-13 22:01 | disposition home or self-care (01) ==
LOC: DL.ED 17:41
DX: I10 Essential (primary) hypertension (principal); N30.00 Acute cystitis without hematuria; Z86.39 Personal history of other endocrine, nutritional and metabolic disease; Z88.0 Allergy status to penicillin; Z79.899 Other long term (current) drug therapy
CPT/HCPCS: 36415; 71045; 80053; 81001; 83605; 83735; 83880; 84443; 84484; 85025; 85610; 86140; 87086; 87088; 87186; 93005; 99285; A9270

== ENCOUNTER 2023-06-03 13:54 | Emergency (ER) | payer MEDICARE, OTHER ==
[2023-06-03 14:21] LABS: BASOPHILS PERCENT AUTO 0.7 % (0.0-1.0); EOSINOPHILS PERCENT AUTO 2.1 % (1.0-3.0); HEMATOCRIT 39.2 % (37.0-47.0); HEMOGLOBIN 12.7 g/dL (12.0-16.0); LYMPHOCYTES PERCENT AUTO 40.8 % (20.5-50.1); MEAN CORPUSCULAR HEMOGLOBIN 28.3 pg (27.0-34.0); MEAN CORPUSCULAR HGB CONC 32.4 g/dL (33.0-35.0); MEAN CORPUSCULAR VOLUME 87.5 fL (80-100); MONOCYTES PERCENT AUTO 7.2 % (2-8); NEUTROPHILS PERCENT AUTO 49.2 % (42.2-75.2); PLATELET COUNT,PLT 260 10^3/uL (150-450); RED BLOOD CELL COUNT 4.48 10^6/uL (4.2-5.4)
[2023-06-03 14:44] LABS: ANION GAP 10.8 mEq/L (7-13); CALCIUM 10.1 mg/dL (8.5-10.1); CREATININE 0.97 mg/dL (0.55-1.02); EST CRCL DRUG DOSING (CG) 44.75 mL/min; POTASSIUM,K 3.8 mmol/L (3.5-5.1)
== END 2023-06-03 15:41 | disposition home or self-care (01) ==
LOC: DL.ED 13:54
DX: R55 Syncope and collapse (principal); E03.9 Hypothyroidism, unspecified; Z86.16 Personal history of COVID-19; Z88.0 Allergy status to penicillin; Z79.899 Other long term (current) drug therapy
CPT/HCPCS: 36415; 70450; 80048; 83735; 84484; 85025; 93005; 93010; 99284